=== PATIENT | male | born 1930 | race Caucasian/White ===

== ENCOUNTER → 2016-06-08 | Outpatient (REF) | payer OTHER ==
[~2016-06-08] MED LIST: BABY81CH OR; SILD50TA PO; TERA2CAP PO; ZOCO40TA PO; [UNRECOGNIZED DRUG - CODE] PO; [UNRECOGNIZED DRUG - OTHER]
== END ==
LOC: M SFHCCLAY 11:40
PROVIDERS: ATTEND Family Medicine
DX: F03.90 Unspecified dementia, unspecified severity, without behavioral disturbance, psychotic disturbance, mood disturbance, and anxiety (principal); I10 Essential (primary) hypertension; E78.2 Mixed hyperlipidemia; Z53.9 Procedure and treatment not carried out, unspecified reason

== ENCOUNTER → 2016-06-22 | Outpatient (REF) | payer OTHER ==
[2016-06-22 18:30] LABS: FOLATE 19.9 NG/ML; VITAMIN B12 LEVEL 413 PG/ML
[2016-06-22 18:43] LABS: ALBUMIN 3.8 GM/DL (3.2-5.2); ALBUMIN/GLOBULIN RATIO 1.58 (1.00-1.93); ALKALINE PHOSPHATASE 92 U/L (45-117); ALT/SGPT 24 U/L (12-78); ANION GAP 7 MEQ/L (8-16); AST/SGOT 21 U/L (15-37); BILIRUBIN,TOTAL 0.5 MG/DL (0.2-1.0); BLOOD UREA NITROGEN 33 MG/DL (7-18); CALCIUM LEVEL 8.2 MG/DL (8.8-10.2); CARBON DIOXIDE LEVEL 28 MEQ/L (21-32); CHLORIDE LEVEL 107 MEQ/L (98-107); CHOLESTEROL LEVEL 127 MG/DL (<200); CREATININE FOR GFR 1.11 MG/DL (0.70-1.30); GLOMERULAR FILTRATION RATE > 60.0 (>35); GLUCOSE, FASTING 102 MG/DL (83-110); POTASSIUM SERUM 4.1 MEQ/L (3.5-5.1); SODIUM LEVEL 142 MEQ/L (136-145); TOTAL PROTEIN 6.2 GM/DL (6.4-8.2); TRIGLYCERIDES LEVEL 70 MG/DL (<150)
== END ==
LOC: M SFHCCLAY 11:17
PROVIDERS: ATTEND Family Medicine
DX: I10 Essential (primary) hypertension (principal); E78.2 Mixed hyperlipidemia; Z12.5 Encounter for screening for malignant neoplasm of prostate; F03.90 Unspecified dementia, unspecified severity, without behavioral disturbance, psychotic disturbance, mood disturbance, and anxiety
CPT/HCPCS: 80053; 80061; 82607; 82746; 84443; G0103

== ENCOUNTER 2017-01-11 03:49 | Inpatient (IN) | payer OTHER ==
[2017-01-11 05:20] LABS: BASO % 0.1 % (0.0-1.0); HEMATOCRIT 33.4 % (42.0-52.0); HEMOGLOBIN 11.2 g/dl (14.0-18.0); IMMATURE GRANULOCYTE % 0.4 % (0-0); LYMPH # 0.7 10^3/uL (1.5-4.5); LYMPH % 6.9 % (24.0-44.0); MEAN CORPUSCULAR HEMOGLOBIN 31.5 pg (27.0-33.0); MEAN CORPUSCULAR HGB CONC 33.5 g/dl (32.0-36.5); MEAN CORPUSCULAR VOLUME 94.1 fl (80.0-96.0); MONO # 1.3 10^3/uL (0.0-0.8); MONO % 13.2 % (0.0-5.0); NEUTROPHILS # 7.5 10^3/uL (1.8-7.7); NEUTROPHILS % 79.4 % (36.0-66.0); PLATELET COUNT, AUTOMATED 109 10^3/uL (150-450); RED BLOOD COUNT 3.55 10^6/uL (4.30-6.10); WHITE BLOOD COUNT 9.5 10^3/uL (4.0-10.0)
[2017-01-11 05:38] LABS: ANION GAP 7 MEQ/L (8-16); BLOOD UREA NITROGEN 34 MG/DL (7-18); CALCIUM LEVEL 7.9 MG/DL (8.8-10.2); CARBON DIOXIDE LEVEL 27 MEQ/L (21-32); CHLORIDE LEVEL 108 MEQ/L (98-107); CREATININE FOR GFR 1.54 MG/DL (0.70-1.30); GLUCOSE, FASTING 128 MG/DL (83-110); SODIUM LEVEL 142 MEQ/L (136-145)
[2017-01-11] MEDS: AZITHROMYCIN INJ 500 MG, VIAL MATE ADAPTER 1 EACH in D5W 250 ML IV (07:45)
[2017-01-11] MEDS: CEFTRIAXONE SOD 2 GM in APPROPRIATE DILUENT 1 EA IV (08:06)
[2017-01-11 08:44] LABS: THYROID STIMULATING HORMONE 0.766 uIU/ML (0.358-3.740)
[2017-01-11 09:33] LABS: VITAMIN B12 LEVEL 425 PG/ML (247-911)
[2017-01-11] MEDS: MEMANTINE 5MG TABLET (NAMENDA) PO ×2 (12:25→20:39)
[2017-01-11] MEDS: ENOXAPARIN 40 MG/0.4 ML SYRINGE (J1650) SC (12:25)
[2017-01-11] MEDS: TAMSULOSIN 0.4 MG CAP PO (12:25)
[2017-01-11] MEDS: amLODIPine 5 MG TAB PO (12:33)
[2017-01-11] MEDS: risperiDONE 1 MG TAB PO (17:37)
[2017-01-11] MEDS: DONEPEZIL 5 MG TAB PO (20:39)
[2017-01-12 06:12] LABS: HEMATOCRIT 30.7 % (42.0-52.0); HEMOGLOBIN 10.3 g/dl (14.0-18.0); MEAN CORPUSCULAR HEMOGLOBIN 31.7 pg (27.0-33.0); MEAN CORPUSCULAR HGB CONC 33.6 g/dl (32.0-36.5); MEAN CORPUSCULAR VOLUME 94.5 fl (80.0-96.0); PLATELET COUNT, AUTOMATED 101 10^3/uL (150-450); RED BLOOD COUNT 3.25 10^6/uL (4.30-6.10); RED CELL DISTRIBUTION WIDTH 13.2 % (11.5-14.5); WHITE BLOOD COUNT 9.4 10^3/uL (4.0-10.0)
[2017-01-12 06:28] LABS: ALBUMIN 2.8 GM/DL (3.2-5.2); ALKALINE PHOSPHATASE 68 U/L (45-117); ALT/SGPT 19 U/L (12-78); ANION GAP 7 MEQ/L (8-16); AST/SGOT 23 U/L (7-37); BILIRUBIN,TOTAL 0.5 MG/DL (0.2-1.0); BLOOD UREA NITROGEN 33 MG/DL (7-18); CARBON DIOXIDE LEVEL 28 MEQ/L (21-32); CHLORIDE LEVEL 107 MEQ/L (98-107); CREATININE FOR GFR 1.04 MG/DL (0.70-1.30); GLOMERULAR FILTRATION RATE > 60.0 (>35); GLUCOSE, FASTING 88 MG/DL (83-110); SODIUM LEVEL 142 MEQ/L (136-145); TOTAL PROTEIN 5.6 GM/DL (6.4-8.2)
[2017-01-12] MEDS: CEFTRIAXONE SOD 2 GM in APPROPRIATE DILUENT 1 EA IV ×2 (09:00→10:45)
[2017-01-12] MEDS: MEMANTINE 5MG TABLET (NAMENDA) PO ×2 (09:21→20:04)
[2017-01-12] MEDS: risperiDONE 1 MG TAB PO (09:21)
[2017-01-12] MEDS: amLODIPine 5 MG TAB PO (09:21)
[2017-01-12] MEDS: AZITHROMYCIN INJ 500 MG, VIAL MATE ADAPTER 1 EACH in D5W 250 ML IV (09:22)
[2017-01-12] MEDS: ENOXAPARIN 40 MG/0.4 ML SYRINGE (J1650) SC (09:22)
[2017-01-12] MEDS: DONEPEZIL 5 MG TAB PO (20:04)
[2017-01-13 05:56] LABS: HEMATOCRIT 31.6 % (42.0-52.0); HEMOGLOBIN 10.4 g/dl (14.0-18.0); MEAN CORPUSCULAR HEMOGLOBIN 30.7 pg (27.0-33.0); MEAN CORPUSCULAR HGB CONC 32.9 g/dl (32.0-36.5); MEAN CORPUSCULAR VOLUME 93.2 fl (80.0-96.0); PLATELET COUNT, AUTOMATED 122 10^3/uL (150-450); RED BLOOD COUNT 3.39 10^6/uL (4.30-6.10); WHITE BLOOD COUNT 7.1 10^3/uL (4.0-10.0)
[2017-01-13] MEDS: MEMANTINE 5MG TABLET (NAMENDA) PO ×2 (09:15→21:21)
[2017-01-13] MEDS: amLODIPine 5 MG TAB PO (09:15)
[2017-01-13] MEDS: risperiDONE 1 MG TAB PO (09:15)
[2017-01-13] MEDS: ENOXAPARIN 40 MG/0.4 ML SYRINGE (J1650) SC (09:16)
[2017-01-13] MEDS: AZITHROMYCIN INJ 500 MG, VIAL MATE ADAPTER 1 EACH in D5W 250 ML IV (09:17)
[2017-01-13] MEDS: BENAZEPRIL 20 MG TAB PO (13:47)
[2017-01-13] MEDS: CEFDINIR 300 MG CAP (OMNICEF) PO (21:21)
[2017-01-13] MEDS: DONEPEZIL 5 MG TAB PO (21:21)
[2017-01-14 06:52] LABS: HEMOGLOBIN 11.4 g/dl (14.0-18.0); MEAN CORPUSCULAR HEMOGLOBIN 30.6 pg (27.0-33.0); MEAN CORPUSCULAR HGB CONC 32.6 g/dl (32.0-36.5); MEAN CORPUSCULAR VOLUME 94.1 fl (80.0-96.0); PLATELET COUNT, AUTOMATED 160 10^3/uL (150-450); RED BLOOD COUNT 3.72 10^6/uL (4.30-6.10); RED CELL DISTRIBUTION WIDTH 13.2 % (11.5-14.5); WHITE BLOOD COUNT 5.1 10^3/uL (4.0-10.0)
[2017-01-14] MEDS: AZITHROMYCIN 250 MG TAB PO (09:40)
[2017-01-14] MEDS: MEMANTINE 5MG TABLET (NAMENDA) PO ×2 (09:40→20:58)
[2017-01-14] MEDS: risperiDONE 1 MG TAB PO (09:41)
[2017-01-14] MEDS: CEFDINIR 300 MG CAP (OMNICEF) PO ×2 (09:41→20:58)
[2017-01-14] MEDS: amLODIPine 5 MG TAB PO (09:41)
[2017-01-14] MEDS: ENOXAPARIN 40 MG/0.4 ML SYRINGE (J1650) SC (09:42)
[2017-01-14] MEDS: DONEPEZIL 5 MG TAB PO (20:58)
[2017-01-15] MEDS: amLODIPine 5 MG TAB PO (09:03)
[2017-01-15] MEDS: CEFDINIR 300 MG CAP (OMNICEF) PO ×2 (09:03→20:15)
[2017-01-15] MEDS: risperiDONE 1 MG TAB PO (09:03)
[2017-01-15] MEDS: AZITHROMYCIN 250 MG TAB PO (09:03)
[2017-01-15] MEDS: MEMANTINE 5MG TABLET (NAMENDA) PO ×2 (09:03→20:15)
[2017-01-15] MEDS: ENOXAPARIN 40 MG/0.4 ML SYRINGE (J1650) SC (09:03)
[2017-01-15] MEDS: DONEPEZIL 5 MG TAB PO (20:15)
[2017-01-16] MEDS: CEFDINIR 300 MG CAP (OMNICEF) PO ×2 (10:15→20:31)
[2017-01-16] MEDS: AZITHROMYCIN 250 MG TAB PO (10:17)
[2017-01-16] MEDS: MEMANTINE 5MG TABLET (NAMENDA) PO ×2 (10:17→20:31)
[2017-01-16] MEDS: amLODIPine 5 MG TAB PO (10:18)
[2017-01-16] MEDS: risperiDONE 1 MG TAB PO (10:18)
[2017-01-16] MEDS: ENOXAPARIN 40 MG/0.4 ML SYRINGE (J1650) SC (10:19)
[2017-01-16] MEDS: DONEPEZIL 5 MG TAB PO (20:31)
[2017-01-17 07:57] LABS: HEMATOCRIT 35.8 % (42.0-52.0); HEMOGLOBIN 11.9 g/dl (14.0-18.0); MEAN CORPUSCULAR HEMOGLOBIN 31.3 pg (27.0-33.0); MEAN CORPUSCULAR HGB CONC 33.2 g/dl (32.0-36.5); MEAN CORPUSCULAR VOLUME 94.2 fl (80.0-96.0); PLATELET COUNT, AUTOMATED 223 10^3/uL (150-450); RED CELL DISTRIBUTION WIDTH 12.7 % (11.5-14.5); WHITE BLOOD COUNT 6.5 10^3/uL (4.0-10.0)
[2017-01-17] MEDS: MEMANTINE 5MG TABLET (NAMENDA) PO ×2 (09:37→20:43)
[2017-01-17] MEDS: CEFDINIR 300 MG CAP (OMNICEF) PO ×2 (09:37→20:42)
[2017-01-17] MEDS: risperiDONE 1 MG TAB PO (09:37)
[2017-01-17] MEDS: amLODIPine 5 MG TAB PO (09:37)
[2017-01-17] MEDS: ENOXAPARIN 40 MG/0.4 ML SYRINGE (J1650) SC (09:38)
[2017-01-17] MEDS: DONEPEZIL 5 MG TAB PO (20:42)
[2017-01-18] MEDS: amLODIPine 5 MG TAB PO (08:28)
[2017-01-18] MEDS: MEMANTINE 5MG TABLET (NAMENDA) PO ×2 (08:28→20:09)
[2017-01-18] MEDS: risperiDONE 1 MG TAB PO (08:28)
[2017-01-18] MEDS: CEFDINIR 300 MG CAP (OMNICEF) PO ×2 (08:29→20:09)
[2017-01-18] MEDS: ENOXAPARIN 40 MG/0.4 ML SYRINGE (J1650) SC (08:29)
[2017-01-18] MEDS: DONEPEZIL 5 MG TAB PO (20:09)
[2017-01-19] MEDS: MEMANTINE 5MG TABLET (NAMENDA) PO ×2 (09:09→20:48)
[2017-01-19] MEDS: CEFDINIR 300 MG CAP (OMNICEF) PO ×2 (09:09→20:48)
[2017-01-19] MEDS: risperiDONE 1 MG TAB PO (09:09)
[2017-01-19] MEDS: amLODIPine 5 MG TAB PO (09:09)
[2017-01-19] MEDS: ENOXAPARIN 40 MG/0.4 ML SYRINGE (J1650) SC (09:10)
[2017-01-19] MEDS: DONEPEZIL 5 MG TAB PO (20:48)
[2017-01-20 07:02] LABS: HEMATOCRIT 32.6 % (42.0-52.0); HEMOGLOBIN 10.9 g/dl (14.0-18.0); MEAN CORPUSCULAR HEMOGLOBIN 31.4 pg (27.0-33.0); MEAN CORPUSCULAR HGB CONC 33.4 g/dl (32.0-36.5); MEAN CORPUSCULAR VOLUME 93.9 fl (80.0-96.0); PLATELET COUNT, AUTOMATED 212 10^3/uL (150-450); RED BLOOD COUNT 3.47 10^6/uL (4.30-6.10); RED CELL DISTRIBUTION WIDTH 12.9 % (11.5-14.5); WHITE BLOOD COUNT 4.6 10^3/uL (4.0-10.0)
[2017-01-20] MEDS: MEMANTINE 5MG TABLET (NAMENDA) PO ×2 (08:23→21:00)
[2017-01-20] MEDS: risperiDONE 1 MG TAB PO (08:23)
[2017-01-20] MEDS: amLODIPine 5 MG TAB PO (08:23)
[2017-01-20] MEDS: CEFDINIR 300 MG CAP (OMNICEF) PO ×2 (08:23→21:00)
[2017-01-20] MEDS: ENOXAPARIN 40 MG/0.4 ML SYRINGE (J1650) SC (16:10)
[2017-01-20] MEDS: DONEPEZIL 5 MG TAB PO (21:00)
[2017-01-21] MEDS: MEMANTINE 5MG TABLET (NAMENDA) PO ×2 (09:06→21:01)
[2017-01-21] MEDS: amLODIPine 5 MG TAB PO (09:06)
[2017-01-21] MEDS: CEFDINIR 300 MG CAP (OMNICEF) PO (09:06)
[2017-01-21] MEDS: ENOXAPARIN 40 MG/0.4 ML SYRINGE (J1650) SC (09:07)
[2017-01-21] MEDS: risperiDONE 1 MG TAB PO (09:07)
[2017-01-21] MEDS: DONEPEZIL 5 MG TAB PO (21:01)
[2017-01-22] MEDS: ENOXAPARIN 40 MG/0.4 ML SYRINGE (J1650) SC (08:45)
[2017-01-22] MEDS: risperiDONE 1 MG TAB PO (08:45)
[2017-01-22] MEDS: MEMANTINE 5MG TABLET (NAMENDA) PO ×2 (08:45→20:12)
[2017-01-22] MEDS: amLODIPine 5 MG TAB PO (08:45)
[2017-01-22] MEDS: DONEPEZIL 5 MG TAB PO (20:12)
[2017-01-23] MEDS: ACETAMINOPHEN TAB 650MG DOSE (2X325MG) PO (00:59)
[2017-01-23 07:07] LABS: HEMATOCRIT 32.9 % (42.0-52.0); HEMOGLOBIN 10.9 g/dl (14.0-18.0); MEAN CORPUSCULAR HEMOGLOBIN 31.1 pg (27.0-33.0); MEAN CORPUSCULAR HGB CONC 33.1 g/dl (32.0-36.5); MEAN CORPUSCULAR VOLUME 93.7 fl (80.0-96.0); PLATELET COUNT, AUTOMATED 192 10^3/uL (150-450); RED BLOOD COUNT 3.51 10^6/uL (4.30-6.10); WHITE BLOOD COUNT 5.3 10^3/uL (4.0-10.0)
[2017-01-23] MEDS: amLODIPine 5 MG TAB PO (09:30)
[2017-01-23] MEDS: risperiDONE 1 MG TAB PO (09:30)
[2017-01-23] MEDS: MEMANTINE 5MG TABLET (NAMENDA) PO ×2 (09:30→20:28)
[2017-01-23] MEDS: ENOXAPARIN 40 MG/0.4 ML SYRINGE (J1650) SC (09:30)
[2017-01-23] MEDS: DONEPEZIL 5 MG TAB PO (20:28)
[2017-01-24] MEDS: MEMANTINE 5MG TABLET (NAMENDA) PO ×2 (09:15→20:44)
[2017-01-24] MEDS: amLODIPine 5 MG TAB PO (09:17)
[2017-01-24] MEDS: risperiDONE 1 MG TAB PO (09:17)
[2017-01-24] MEDS: ENOXAPARIN 40 MG/0.4 ML SYRINGE (J1650) SC (09:18)
[2017-01-24] MEDS: DONEPEZIL 5 MG TAB PO (20:44)
[2017-01-25] MEDS: MEMANTINE 5MG TABLET (NAMENDA) PO ×2 (11:02→20:47)
[2017-01-25] MEDS: risperiDONE 1 MG TAB PO (11:02)
[2017-01-25] MEDS: ENOXAPARIN 40 MG/0.4 ML SYRINGE (J1650) SC (11:02)
[2017-01-25] MEDS: amLODIPine 5 MG TAB PO (11:03)
[2017-01-25] MEDS: DONEPEZIL 5 MG TAB PO (20:46)
[2017-01-25] MEDS: ACETAMINOPHEN TAB 650MG DOSE (2X325MG) PO (23:22)
[2017-01-26] MEDS: risperiDONE 1 MG TAB PO (09:43)
[2017-01-26] MEDS: MEMANTINE 5MG TABLET (NAMENDA) PO ×2 (09:43→22:28)
[2017-01-26] MEDS: amLODIPine 5 MG TAB PO (09:44)
[2017-01-26] MEDS: ENOXAPARIN 40 MG/0.4 ML SYRINGE (J1650) SC (09:45)
[2017-01-26] MEDS: DONEPEZIL 5 MG TAB PO (22:28)
[2017-01-27] MEDS: risperiDONE 1 MG TAB PO (08:59)
[2017-01-27] MEDS: ENOXAPARIN 40 MG/0.4 ML SYRINGE (J1650) SC (08:59)
[2017-01-27] MEDS: MEMANTINE 5MG TABLET (NAMENDA) PO ×2 (08:59→20:42)
[2017-01-27] MEDS: amLODIPine 5 MG TAB PO (08:59)
[2017-01-27] MEDS: DONEPEZIL 5 MG TAB PO (20:42)
[2017-01-27] MEDS: ACETAMINOPHEN TAB 650MG DOSE (2X325MG) PO (23:09)
[2017-01-28] MEDS: ACETAMINOPHEN TAB 650MG DOSE (2X325MG) PO (03:57)
[2017-01-28] MEDS: amLODIPine 5 MG TAB PO (09:07)
[2017-01-28] MEDS: MEMANTINE 5MG TABLET (NAMENDA) PO ×2 (09:07→21:03)
[2017-01-28] MEDS: risperiDONE 1 MG TAB PO (09:07)
[2017-01-28] MEDS: ENOXAPARIN 40 MG/0.4 ML SYRINGE (J1650) SC (09:07)
[2017-01-28] MEDS: DONEPEZIL 5 MG TAB PO (21:03)
[2017-01-29] MEDS: amLODIPine 5 MG TAB PO (08:36)
[2017-01-29] MEDS: MEMANTINE 5MG TABLET (NAMENDA) PO ×2 (08:36→20:36)
[2017-01-29] MEDS: risperiDONE 1 MG TAB PO (08:36)
[2017-01-29] MEDS: ENOXAPARIN 40 MG/0.4 ML SYRINGE (J1650) SC (08:37)
[2017-01-29] MEDS: DONEPEZIL 5 MG TAB PO (20:35)
[2017-01-29] MEDS: ACETAMINOPHEN TAB 650MG DOSE (2X325MG) PO (20:38)
[2017-01-30] MEDS: MEMANTINE 5MG TABLET (NAMENDA) PO ×2 (09:22→20:25)
[2017-01-30] MEDS: risperiDONE 1 MG TAB PO (09:22)
[2017-01-30] MEDS: amLODIPine 5 MG TAB PO (09:23)
[2017-01-30] MEDS: ENOXAPARIN 40 MG/0.4 ML SYRINGE (J1650) SC (09:23)
[2017-01-30] MEDS: DONEPEZIL 5 MG TAB PO (20:25)
[2017-01-31] MEDS: risperiDONE 1 MG TAB PO (08:49)
[2017-01-31] MEDS: amLODIPine 5 MG TAB PO (08:50)
[2017-01-31] MEDS: MEMANTINE 5MG TABLET (NAMENDA) PO ×2 (08:50→20:19)
[2017-01-31] MEDS: ENOXAPARIN 40 MG/0.4 ML SYRINGE (J1650) SC (08:50)
[2017-01-31] MEDS: DONEPEZIL 5 MG TAB PO (20:18)
[2017-02-01] MEDS: risperiDONE 1 MG TAB PO (08:23)
[2017-02-01] MEDS: MEMANTINE 5MG TABLET (NAMENDA) PO ×2 (08:23→20:07)
[2017-02-01] MEDS: ENOXAPARIN 40 MG/0.4 ML SYRINGE (J1650) SC (08:23)
[2017-02-01] MEDS: amLODIPine 5 MG TAB PO (08:23)
[2017-02-01] MEDS: DONEPEZIL 5 MG TAB PO (20:07)
[2017-02-02] MEDS: ACETAMINOPHEN TAB 650MG DOSE (2X325MG) PO (07:09)
[2017-02-02] MEDS: MEMANTINE 5MG TABLET (NAMENDA) PO ×2 (08:35→22:14)
[2017-02-02] MEDS: amLODIPine 5 MG TAB PO (08:35)
[2017-02-02] MEDS: risperiDONE 1 MG TAB PO (08:35)
[2017-02-02] MEDS: ENOXAPARIN 40 MG/0.4 ML SYRINGE (J1650) SC (08:36)
[2017-02-02] MEDS: DONEPEZIL 5 MG TAB PO (22:14)
[2017-02-03] MEDS: ENOXAPARIN 40 MG/0.4 ML SYRINGE (J1650) SC (08:43)
[2017-02-03] MEDS: MEMANTINE 5MG TABLET (NAMENDA) PO ×2 (08:43→20:06)
[2017-02-03] MEDS: risperiDONE 1 MG TAB PO (08:43)
[2017-02-03] MEDS: amLODIPine 5 MG TAB PO (08:44)
[2017-02-03] MEDS: ACETAMINOPHEN TAB 650MG DOSE (2X325MG) PO ×2 (14:38→20:07)
[2017-02-03] MEDS: DONEPEZIL 5 MG TAB PO (20:06)
[2017-02-04] MEDS: MEMANTINE 5MG TABLET (NAMENDA) PO ×2 (07:56→19:57)
[2017-02-04] MEDS: amLODIPine 5 MG TAB PO (07:56)
[2017-02-04] MEDS: risperiDONE 1 MG TAB PO (07:56)
[2017-02-04] MEDS: ENOXAPARIN 40 MG/0.4 ML SYRINGE (J1650) SC (07:57)
[2017-02-04] MEDS: ACETAMINOPHEN TAB 650MG DOSE (2X325MG) PO (19:57)
[2017-02-04] MEDS: DONEPEZIL 5 MG TAB PO (19:57)
[2017-02-05] MEDS: MEMANTINE 5MG TABLET (NAMENDA) PO ×2 (11:54→20:19)
[2017-02-05] MEDS: amLODIPine 5 MG TAB PO (11:55)
[2017-02-05] MEDS: risperiDONE 1 MG TAB PO (11:55)
[2017-02-05] MEDS: ENOXAPARIN 40 MG/0.4 ML SYRINGE (J1650) SC (11:55)
[2017-02-05] MEDS: DONEPEZIL 5 MG TAB PO (20:19)
[2017-02-06] MEDS: risperiDONE 1 MG TAB PO (10:23)
[2017-02-06] MEDS: MEMANTINE 5MG TABLET (NAMENDA) PO ×2 (10:23→20:01)
[2017-02-06] MEDS: amLODIPine 5 MG TAB PO (10:23)
[2017-02-06] MEDS: ENOXAPARIN 40 MG/0.4 ML SYRINGE (J1650) SC (10:24)
[2017-02-06] MEDS: BENAZEPRIL 20 MG TAB PO (15:25)
[2017-02-06] MEDS: DONEPEZIL 5 MG TAB PO (20:01)
[2017-02-06] MEDS: ACETAMINOPHEN TAB 650MG DOSE (2X325MG) PO (20:02)
[2017-02-07] MEDS: MEMANTINE 5MG TABLET (NAMENDA) PO ×2 (08:09→21:00)
[2017-02-07] MEDS: ENOXAPARIN 40 MG/0.4 ML SYRINGE (J1650) SC (08:10)
[2017-02-07] MEDS: risperiDONE 1 MG TAB PO (08:10)
[2017-02-07] MEDS: BENAZEPRIL 20 MG TAB PO (08:10)
[2017-02-07] MEDS: amLODIPine 5 MG TAB PO (08:10)
[2017-02-07] MEDS: ACETAMINOPHEN TAB 650MG DOSE (2X325MG) PO ×2 (15:01→21:03)
[2017-02-07] MEDS: DONEPEZIL 5 MG TAB PO (21:00)
[2017-02-08] MEDS: ACETAMINOPHEN TAB 650MG DOSE (2X325MG) PO ×2 (04:45→20:01)
[2017-02-08] MEDS: MEMANTINE 5MG TABLET (NAMENDA) PO ×2 (08:11→20:00)
[2017-02-08] MEDS: amLODIPine 5 MG TAB PO (08:12)
[2017-02-08] MEDS: risperiDONE 1 MG TAB PO (08:12)
[2017-02-08] MEDS: BENAZEPRIL 20 MG TAB PO (08:12)
[2017-02-08] MEDS: ENOXAPARIN 40 MG/0.4 ML SYRINGE (J1650) SC (11:09)
[2017-02-08] MEDS: DONEPEZIL 5 MG TAB PO (20:00)
[2017-02-09] MEDS: ACETAMINOPHEN TAB 650MG DOSE (2X325MG) PO ×2 (02:08→21:19)
[2017-02-09] MEDS: MEMANTINE 5MG TABLET (NAMENDA) PO ×2 (09:46→21:18)
[2017-02-09] MEDS: risperiDONE 1 MG TAB PO (09:46)
[2017-02-09] MEDS: ENOXAPARIN 40 MG/0.4 ML SYRINGE (J1650) SC (09:47)
[2017-02-09] MEDS: amLODIPine 5 MG TAB PO (09:51)
[2017-02-09] MEDS: BENAZEPRIL 20 MG TAB PO (09:52)
[2017-02-09] MEDS: DONEPEZIL 5 MG TAB PO (21:19)
[2017-02-10] MEDS: amLODIPine 5 MG TAB PO (09:19)
[2017-02-10] MEDS: risperiDONE 1 MG TAB PO (09:19)
[2017-02-10] MEDS: MEMANTINE 5MG TABLET (NAMENDA) PO ×2 (09:19→20:12)
[2017-02-10] MEDS: BENAZEPRIL 20 MG TAB PO (09:19)
[2017-02-10] MEDS: ENOXAPARIN 40 MG/0.4 ML SYRINGE (J1650) SC (09:20)
[2017-02-10] MEDS: DONEPEZIL 5 MG TAB PO (20:12)
[2017-02-11] MEDS: ENOXAPARIN 40 MG/0.4 ML SYRINGE (J1650) SC (09:42)
[2017-02-11] MEDS: risperiDONE 1 MG TAB PO (09:42)
[2017-02-11] MEDS: MEMANTINE 5MG TABLET (NAMENDA) PO ×2 (09:45→19:52)
[2017-02-11] MEDS: BENAZEPRIL 20 MG TAB PO (09:45)
[2017-02-11] MEDS: amLODIPine 5 MG TAB PO (09:46)
[2017-02-11] MEDS: DONEPEZIL 5 MG TAB PO (19:52)
[2017-02-11] MEDS: ACETAMINOPHEN TAB 650MG DOSE (2X325MG) PO (19:52)
[2017-02-12] MEDS: BENAZEPRIL 20 MG TAB PO (10:14)
[2017-02-12] MEDS: risperiDONE 1 MG TAB PO (10:14)
[2017-02-12] MEDS: amLODIPine 5 MG TAB PO (10:15)
[2017-02-12] MEDS: ENOXAPARIN 40 MG/0.4 ML SYRINGE (J1650) SC (10:15)
[2017-02-12] MEDS: MEMANTINE 5MG TABLET (NAMENDA) PO ×2 (10:15→19:40)
[2017-02-12] MEDS: ACETAMINOPHEN TAB 650MG DOSE (2X325MG) PO (17:54)
[2017-02-12] MEDS: DONEPEZIL 5 MG TAB PO (19:39)
[2017-02-13] MEDS: MEMANTINE 5MG TABLET (NAMENDA) PO ×2 (09:36→20:07)
[2017-02-13] MEDS: risperiDONE 1 MG TAB PO (09:36)
[2017-02-13] MEDS: ENOXAPARIN 40 MG/0.4 ML SYRINGE (J1650) SC (09:36)
[2017-02-13] MEDS: amLODIPine 5 MG TAB PO (09:36)
[2017-02-13] MEDS: BENAZEPRIL 20 MG TAB PO (09:36)
[2017-02-13] MEDS: ACETAMINOPHEN TAB 650MG DOSE (2X325MG) PO (20:07)
[2017-02-13] MEDS: DONEPEZIL 5 MG TAB PO (20:07)
[2017-02-14] MEDS: risperiDONE 1 MG TAB PO (09:00)
[2017-02-14] MEDS: ENOXAPARIN 40 MG/0.4 ML SYRINGE (J1650) SC (09:01)
[2017-02-14] MEDS: MEMANTINE 5MG TABLET (NAMENDA) PO ×2 (09:01→21:02)
[2017-02-14] MEDS: BENAZEPRIL 20 MG TAB PO (09:01)
[2017-02-14] MEDS: amLODIPine 5 MG TAB PO (09:01)
[2017-02-14] MEDS: DONEPEZIL 5 MG TAB PO (21:03)
[2017-02-15] MEDS: ACETAMINOPHEN TAB 650MG DOSE (2X325MG) PO ×3 (05:43→20:20)
[2017-02-15] MEDS: risperiDONE 1 MG TAB PO (09:00)
[2017-02-15] MEDS: MEMANTINE 5MG TABLET (NAMENDA) PO ×2 (09:00→20:14)
[2017-02-15] MEDS: amLODIPine 5 MG TAB PO (09:00)
[2017-02-15] MEDS: BENAZEPRIL 20 MG TAB PO (09:01)
[2017-02-15] MEDS: DONEPEZIL 5 MG TAB PO (20:14)
[2017-02-16] MEDS: MEMANTINE 5MG TABLET (NAMENDA) PO ×2 (10:42→20:04)
[2017-02-16] MEDS: BENAZEPRIL 20 MG TAB PO (10:42)
[2017-02-16] MEDS: amLODIPine 5 MG TAB PO (10:42)
[2017-02-16] MEDS: risperiDONE 1 MG TAB PO (10:42)
[2017-02-16] MEDS: ACETAMINOPHEN TAB 650MG DOSE (2X325MG) PO ×2 (10:43→20:05)
[2017-02-16] MEDS: DONEPEZIL 5 MG TAB PO (20:04)
[2017-02-17] MEDS: risperiDONE 1 MG TAB PO (08:17)
[2017-02-17] MEDS: amLODIPine 5 MG TAB PO (08:17)
[2017-02-17] MEDS: BENAZEPRIL 20 MG TAB PO (08:17)
[2017-02-17] MEDS: MEMANTINE 5MG TABLET (NAMENDA) PO ×2 (08:17→20:28)
[2017-02-17] MEDS: DONEPEZIL 5 MG TAB PO (20:28)
[2017-02-17] MEDS: ACETAMINOPHEN TAB 650MG DOSE (2X325MG) PO (20:29)
[2017-02-18] MEDS: amLODIPine 5 MG TAB PO (09:25)
[2017-02-18] MEDS: MEMANTINE 5MG TABLET (NAMENDA) PO ×2 (09:25→20:01)
[2017-02-18] MEDS: BENAZEPRIL 20 MG TAB PO (09:26)
[2017-02-18] MEDS: risperiDONE 1 MG TAB PO (09:26)
[2017-02-18] MEDS: DONEPEZIL 5 MG TAB PO (20:01)
[2017-02-18] MEDS: ACETAMINOPHEN TAB 650MG DOSE (2X325MG) PO (22:27)
[2017-02-19] MEDS: risperiDONE 1 MG TAB PO (10:00)
[2017-02-19] MEDS: MEMANTINE 5MG TABLET (NAMENDA) PO ×2 (10:00→20:09)
[2017-02-19] MEDS: amLODIPine 5 MG TAB PO (10:01)
[2017-02-19] MEDS: BENAZEPRIL 20 MG TAB PO (10:02)
[2017-02-19] MEDS: ACETAMINOPHEN TAB 650MG DOSE (2X325MG) PO (16:31)
[2017-02-19] MEDS: DONEPEZIL 5 MG TAB PO (20:09)
[2017-02-20] MEDS: BENAZEPRIL 20 MG TAB PO (08:09)
[2017-02-20] MEDS: MEMANTINE 5MG TABLET (NAMENDA) PO ×2 (08:09→20:30)
[2017-02-20] MEDS: risperiDONE 1 MG TAB PO (08:09)
[2017-02-20] MEDS: amLODIPine 5 MG TAB PO (08:10)
[2017-02-20] MEDS: DONEPEZIL 5 MG TAB PO (20:30)
[2017-02-20] MEDS: ACETAMINOPHEN TAB 650MG DOSE (2X325MG) PO (20:30)
[2017-02-21] MEDS: ACETAMINOPHEN TAB 650MG DOSE (2X325MG) PO ×2 (08:33→20:03)
[2017-02-21] MEDS: MEMANTINE 5MG TABLET (NAMENDA) PO ×2 (08:33→20:02)
[2017-02-21] MEDS: risperiDONE 1 MG TAB PO (08:34)
[2017-02-21] MEDS: BENAZEPRIL 20 MG TAB PO (08:34)
[2017-02-21] MEDS: amLODIPine 5 MG TAB PO (08:34)
[2017-02-21] MEDS: DONEPEZIL 5 MG TAB PO (20:02)
[2017-02-22] MEDS: ACETAMINOPHEN TAB 650MG DOSE (2X325MG) PO ×4 (00:49→23:27)
[2017-02-22] MEDS: risperiDONE 1 MG TAB PO (07:44)
[2017-02-22] MEDS: BENAZEPRIL 20 MG TAB PO (07:45)
[2017-02-22] MEDS: amLODIPine 5 MG TAB PO (07:45)
[2017-02-22] MEDS: MEMANTINE 5MG TABLET (NAMENDA) PO ×2 (07:45→20:35)
[2017-02-22] MEDS: DONEPEZIL 5 MG TAB PO (20:35)
[2017-02-23] MEDS: BENAZEPRIL 20 MG TAB PO (10:18)
[2017-02-23] MEDS: MEMANTINE 5MG TABLET (NAMENDA) PO ×2 (10:18→21:53)
[2017-02-23] MEDS: risperiDONE 1 MG TAB PO (10:18)
[2017-02-23] MEDS: amLODIPine 5 MG TAB PO (10:18)
[2017-02-23] MEDS: DONEPEZIL 5 MG TAB PO (21:53)
[2017-02-23] MEDS: ACETAMINOPHEN TAB 650MG DOSE (2X325MG) PO (22:55)
[2017-02-24] MEDS: amLODIPine 5 MG TAB PO (08:59)
[2017-02-24] MEDS: BENAZEPRIL 20 MG TAB PO (08:59)
[2017-02-24] MEDS: MEMANTINE 5MG TABLET (NAMENDA) PO ×2 (08:59→20:19)
[2017-02-24] MEDS: risperiDONE 1 MG TAB PO (09:00)
[2017-02-24] MEDS: ACETAMINOPHEN TAB 650MG DOSE (2X325MG) PO (20:18)
[2017-02-24] MEDS: DONEPEZIL 5 MG TAB PO (20:19)
[2017-02-25] MEDS: risperiDONE 1 MG TAB PO (08:56)
[2017-02-25] MEDS: MEMANTINE 5MG TABLET (NAMENDA) PO ×2 (08:57→20:18)
[2017-02-25] MEDS: BENAZEPRIL 20 MG TAB PO (08:57)
[2017-02-25] MEDS: amLODIPine 5 MG TAB PO (09:00)
[2017-02-25] MEDS: DONEPEZIL 5 MG TAB PO (20:18)
[2017-02-25] MEDS: ACETAMINOPHEN TAB 650MG DOSE (2X325MG) PO (20:18)
[2017-02-26] MEDS: risperiDONE 1 MG TAB PO (08:13)
[2017-02-26] MEDS: MEMANTINE 5MG TABLET (NAMENDA) PO ×2 (08:13→20:07)
[2017-02-26] MEDS: amLODIPine 5 MG TAB PO (08:13)
[2017-02-26] MEDS: BENAZEPRIL 20 MG TAB PO (08:13)
[2017-02-26] MEDS: DONEPEZIL 5 MG TAB PO (20:07)
[2017-02-26] MEDS: ACETAMINOPHEN TAB 650MG DOSE (2X325MG) PO (20:07)
[2017-02-27] MEDS: risperiDONE 1 MG TAB PO (09:36)
[2017-02-27] MEDS: amLODIPine 5 MG TAB PO (09:37)
[2017-02-27] MEDS: MEMANTINE 5MG TABLET (NAMENDA) PO ×2 (09:37→20:18)
[2017-02-27] MEDS: BENAZEPRIL 20 MG TAB PO (09:37)
[2017-02-27] MEDS: DONEPEZIL 5 MG TAB PO (20:18)
[2017-02-27] MEDS: ACETAMINOPHEN TAB 650MG DOSE (2X325MG) PO (20:18)
[2017-02-28] MEDS: BENAZEPRIL 20 MG TAB PO (09:45)
[2017-02-28] MEDS: risperiDONE 1 MG TAB PO (09:46)
[2017-02-28] MEDS: MEMANTINE 5MG TABLET (NAMENDA) PO ×2 (09:46→22:17)
[2017-02-28] MEDS: amLODIPine 5 MG TAB PO (09:46)
[2017-02-28] MEDS: ACETAMINOPHEN TAB 650MG DOSE (2X325MG) PO (22:17)
[2017-02-28] MEDS: DONEPEZIL 5 MG TAB PO (22:17)
[2017-03-01] MEDS: MEMANTINE 5MG TABLET (NAMENDA) PO ×2 (08:09→20:07)
[2017-03-01] MEDS: amLODIPine 5 MG TAB PO (08:09)
[2017-03-01] MEDS: risperiDONE 1 MG TAB PO (08:09)
[2017-03-01] MEDS: BENAZEPRIL 20 MG TAB PO (08:09)
[2017-03-01] MEDS: ACETAMINOPHEN TAB 650MG DOSE (2X325MG) PO ×2 (09:48→20:08)
[2017-03-01] MEDS: DONEPEZIL 5 MG TAB PO (20:07)
[2017-03-01] MEDS: GABAPENTIN 100 MG CAP PO (20:08)
[2017-03-02] MEDS: GABAPENTIN 100 MG CAP PO ×2 (08:54→20:06)
[2017-03-02] MEDS: BENAZEPRIL 20 MG TAB PO (08:54)
[2017-03-02] MEDS: MEMANTINE 5MG TABLET (NAMENDA) PO ×2 (08:54→20:06)
[2017-03-02] MEDS: risperiDONE 1 MG TAB PO (08:54)
[2017-03-02] MEDS: amLODIPine 5 MG TAB PO (08:54)
[2017-03-02] MEDS: NAPROXEN 250 MG TAB PO (20:06)
[2017-03-02] MEDS: DONEPEZIL 5 MG TAB PO (20:06)
[2017-03-03] MEDS: amLODIPine 5 MG TAB PO (07:53)
[2017-03-03] MEDS: MEMANTINE 5MG TABLET (NAMENDA) PO ×2 (07:53→20:22)
[2017-03-03] MEDS: risperiDONE 1 MG TAB PO (07:53)
[2017-03-03] MEDS: BENAZEPRIL 20 MG TAB PO (07:53)
[2017-03-03] MEDS: GABAPENTIN 100 MG CAP PO ×2 (07:53→20:22)
[2017-03-03] MEDS: DONEPEZIL 5 MG TAB PO (20:22)
[2017-03-03] MEDS: ACETAMINOPHEN TAB 650MG DOSE (2X325MG) PO (20:23)
[2017-03-04] MEDS: risperiDONE 1 MG TAB PO (08:48)
[2017-03-04] MEDS: amLODIPine 5 MG TAB PO (08:48)
[2017-03-04] MEDS: BENAZEPRIL 20 MG TAB PO (08:48)
[2017-03-04] MEDS: MEMANTINE 5MG TABLET (NAMENDA) PO ×2 (08:48→21:41)
[2017-03-04] MEDS: GABAPENTIN 100 MG CAP PO ×2 (08:48→21:41)
[2017-03-04] MEDS: DONEPEZIL 5 MG TAB PO (21:41)
[2017-03-04] MEDS: ACETAMINOPHEN TAB 650MG DOSE (2X325MG) PO (23:48)
[2017-03-05] MEDS: MEMANTINE 5MG TABLET (NAMENDA) PO ×2 (08:55→20:41)
[2017-03-05] MEDS: risperiDONE 1 MG TAB PO (08:56)
[2017-03-05] MEDS: amLODIPine 5 MG TAB PO (08:56)
[2017-03-05] MEDS: BENAZEPRIL 20 MG TAB PO (08:56)
[2017-03-05] MEDS: GABAPENTIN 100 MG CAP PO ×2 (08:56→20:41)
[2017-03-05] MEDS: DONEPEZIL 5 MG TAB PO (20:41)
[2017-03-05] MEDS: ACETAMINOPHEN TAB 650MG DOSE (2X325MG) PO (20:43)
[2017-03-06] MEDS: ACETAMINOPHEN TAB 650MG DOSE (2X325MG) PO ×2 (01:50→23:50)
[2017-03-06] MEDS: amLODIPine 5 MG TAB PO (08:19)
[2017-03-06] MEDS: GABAPENTIN 100 MG CAP PO ×2 (08:19→20:51)
[2017-03-06] MEDS: BENAZEPRIL 20 MG TAB PO (08:19)
[2017-03-06] MEDS: MEMANTINE 5MG TABLET (NAMENDA) PO ×2 (08:19→20:51)
[2017-03-06] MEDS: risperiDONE 1 MG TAB PO (08:19)
[2017-03-06] MEDS: NAPROXEN 250 MG TAB PO (20:51)
[2017-03-06] MEDS: DONEPEZIL 5 MG TAB PO (20:51)
[2017-03-07] MEDS: ACETAMINOPHEN TAB 650MG DOSE (2X325MG) PO ×2 (05:59→18:07)
[2017-03-07] MEDS: GABAPENTIN 100 MG CAP PO ×2 (08:43→20:35)
[2017-03-07] MEDS: MEMANTINE 5MG TABLET (NAMENDA) PO ×2 (08:43→20:35)
[2017-03-07] MEDS: amLODIPine 5 MG TAB PO (08:43)
[2017-03-07] MEDS: BENAZEPRIL 20 MG TAB PO (08:43)
[2017-03-07] MEDS: risperiDONE 1 MG TAB PO (08:43)
[2017-03-07] MEDS: DONEPEZIL 5 MG TAB PO (20:35)
[2017-03-07] MEDS: NAPROXEN 250 MG TAB PO (20:36)
[2017-03-08] MEDS: ACETAMINOPHEN TAB 650MG DOSE (2X325MG) PO (04:12)
[2017-03-08] MEDS: NAPROXEN 250 MG TAB PO ×2 (09:45→20:25)
[2017-03-08] MEDS: risperiDONE 1 MG TAB PO (09:45)
[2017-03-08] MEDS: amLODIPine 5 MG TAB PO (09:46)
[2017-03-08] MEDS: MEMANTINE 5MG TABLET (NAMENDA) PO ×2 (09:46→20:25)
[2017-03-08] MEDS: BENAZEPRIL 20 MG TAB PO (09:46)
[2017-03-08] MEDS: GABAPENTIN 100 MG CAP PO ×2 (09:46→20:25)
[2017-03-08] MEDS: DONEPEZIL 5 MG TAB PO (20:25)
[2017-03-09] MEDS: risperiDONE 1 MG TAB PO (08:51)
[2017-03-09] MEDS: GABAPENTIN 100 MG CAP PO ×2 (08:51→20:23)
[2017-03-09] MEDS: BENAZEPRIL 20 MG TAB PO (08:51)
[2017-03-09] MEDS: MEMANTINE 5MG TABLET (NAMENDA) PO ×2 (08:51→20:22)
[2017-03-09] MEDS: amLODIPine 5 MG TAB PO (08:52)
[2017-03-09] MEDS: DONEPEZIL 5 MG TAB PO (20:23)
[2017-03-09] MEDS: ACETAMINOPHEN TAB 650MG DOSE (2X325MG) PO (20:23)
[2017-03-10] MEDS: BENAZEPRIL 20 MG TAB PO (08:31)
[2017-03-10] MEDS: MEMANTINE 5MG TABLET (NAMENDA) PO ×2 (08:31→20:54)
[2017-03-10] MEDS: GABAPENTIN 100 MG CAP PO ×2 (08:31→20:54)
[2017-03-10] MEDS: risperiDONE 1 MG TAB PO (08:31)
[2017-03-10] MEDS: NAPROXEN 250 MG TAB PO (08:31)
[2017-03-10] MEDS: amLODIPine 5 MG TAB PO (08:32)
[2017-03-10] MEDS: DONEPEZIL 5 MG TAB PO (20:54)
[2017-03-11] MEDS: MEMANTINE 5MG TABLET (NAMENDA) PO ×2 (10:59→21:45)
[2017-03-11] MEDS: amLODIPine 5 MG TAB PO (10:59)
[2017-03-11] MEDS: risperiDONE 1 MG TAB PO (11:00)
[2017-03-11] MEDS: GABAPENTIN 100 MG CAP PO ×2 (11:00→21:45)
[2017-03-11] MEDS: BENAZEPRIL 20 MG TAB PO (11:00)
[2017-03-11] MEDS: DONEPEZIL 5 MG TAB PO (21:44)
[2017-03-11] MEDS: ACETAMINOPHEN TAB 650MG DOSE (2X325MG) PO (21:46)
[2017-03-12] MEDS: risperiDONE 1 MG TAB PO (08:18)
[2017-03-12] MEDS: MEMANTINE 5MG TABLET (NAMENDA) PO ×2 (08:18→21:59)
[2017-03-12] MEDS: BENAZEPRIL 20 MG TAB PO (08:18)
[2017-03-12] MEDS: GABAPENTIN 100 MG CAP PO ×2 (08:18→21:59)
[2017-03-12] MEDS: amLODIPine 5 MG TAB PO (08:18)
[2017-03-12] MEDS: NAPROXEN 250 MG TAB PO (08:19)
[2017-03-12] MEDS: DONEPEZIL 5 MG TAB PO (21:59)
[2017-03-12] MEDS: ACETAMINOPHEN TAB 650MG DOSE (2X325MG) PO (22:01)
[2017-03-13] MEDS: BENAZEPRIL 20 MG TAB PO (08:51)
[2017-03-13] MEDS: amLODIPine 5 MG TAB PO (08:51)
[2017-03-13] MEDS: ACETAMINOPHEN TAB 650MG DOSE (2X325MG) PO ×2 (08:51→20:58)
[2017-03-13] MEDS: GABAPENTIN 100 MG CAP PO ×2 (08:51→20:56)
[2017-03-13] MEDS: risperiDONE 1 MG TAB PO (08:51)
[2017-03-13] MEDS: MEMANTINE 5MG TABLET (NAMENDA) PO ×2 (08:51→20:56)
[2017-03-13] MEDS: DONEPEZIL 5 MG TAB PO (20:56)
[2017-03-14] MEDS: risperiDONE 1 MG TAB PO (08:10)
[2017-03-14] MEDS: BENAZEPRIL 20 MG TAB PO (08:10)
[2017-03-14] MEDS: GABAPENTIN 100 MG CAP PO ×4 (08:11→21:04)
[2017-03-14] MEDS: ACETAMINOPHEN TAB 650MG DOSE (2X325MG) PO ×3 (08:11→21:04)
[2017-03-14] MEDS: MEMANTINE 5MG TABLET (NAMENDA) PO ×4 (08:11→21:04)
[2017-03-14] MEDS: amLODIPine 5 MG TAB PO (08:11)
[2017-03-14] MEDS: DONEPEZIL 5 MG TAB PO ×3 (19:57→21:04)
[2017-03-14] MEDS: NAPROXEN 250 MG TAB PO (23:23)
[2017-03-15] MEDS: amLODIPine 5 MG TAB PO (08:38)
[2017-03-15] MEDS: GABAPENTIN 100 MG CAP PO ×2 (08:38→21:25)
[2017-03-15] MEDS: BENAZEPRIL 20 MG TAB PO (08:38)
[2017-03-15] MEDS: NAPROXEN 250 MG TAB PO ×2 (08:39→21:25)
[2017-03-15] MEDS: risperiDONE 1 MG TAB PO (08:39)
[2017-03-15] MEDS: MEMANTINE 5MG TABLET (NAMENDA) PO ×2 (08:39→21:25)
[2017-03-15] MEDS: DONEPEZIL 5 MG TAB PO (21:25)
[2017-03-16] MEDS: amLODIPine 5 MG TAB PO (10:56)
[2017-03-16] MEDS: GABAPENTIN 100 MG CAP PO ×2 (10:56→20:53)
[2017-03-16] MEDS: MEMANTINE 5MG TABLET (NAMENDA) PO ×2 (10:56→20:53)
[2017-03-16] MEDS: BENAZEPRIL 20 MG TAB PO (10:56)
[2017-03-16] MEDS: risperiDONE 1 MG TAB PO (10:57)
[2017-03-16] MEDS: DONEPEZIL 5 MG TAB PO (20:53)
[2017-03-17] MEDS: MEMANTINE 5MG TABLET (NAMENDA) PO ×2 (10:23→20:30)
[2017-03-17] MEDS: amLODIPine 5 MG TAB PO (10:23)
[2017-03-17] MEDS: BENAZEPRIL 20 MG TAB PO (10:23)
[2017-03-17] MEDS: risperiDONE 1 MG TAB PO (10:23)
[2017-03-17] MEDS: GABAPENTIN 100 MG CAP PO ×2 (10:24→20:30)
[2017-03-17] MEDS: DONEPEZIL 5 MG TAB PO (20:30)
[2017-03-18] MEDS: BENAZEPRIL 20 MG TAB PO (08:27)
[2017-03-18] MEDS: risperiDONE 1 MG TAB PO (08:27)
[2017-03-18] MEDS: amLODIPine 5 MG TAB PO (08:27)
[2017-03-18] MEDS: GABAPENTIN 100 MG CAP PO ×2 (08:28→21:22)
[2017-03-18] MEDS: MEMANTINE 5MG TABLET (NAMENDA) PO ×2 (08:28→21:23)
[2017-03-18] MEDS: ACETAMINOPHEN TAB 650MG DOSE (2X325MG) PO ×2 (14:14→21:24)
[2017-03-18] MEDS: DONEPEZIL 5 MG TAB PO (21:23)
[2017-03-19] MEDS: amLODIPine 5 MG TAB PO (10:13)
[2017-03-19] MEDS: BENAZEPRIL 20 MG TAB PO (10:13)
[2017-03-19] MEDS: risperiDONE 1 MG TAB PO (10:13)
[2017-03-19] MEDS: GABAPENTIN 100 MG CAP PO ×2 (10:13→21:32)
[2017-03-19] MEDS: MEMANTINE 5MG TABLET (NAMENDA) PO ×2 (10:13→21:32)
[2017-03-19] MEDS: DONEPEZIL 5 MG TAB PO (21:32)
[2017-03-19] MEDS: ACETAMINOPHEN TAB 650MG DOSE (2X325MG) PO (21:34)
[2017-03-20] MEDS: BENAZEPRIL 20 MG TAB PO (08:42)
[2017-03-20] MEDS: risperiDONE 1 MG TAB PO (08:42)
[2017-03-20] MEDS: MEMANTINE 5MG TABLET (NAMENDA) PO ×2 (08:42→21:24)
[2017-03-20] MEDS: GABAPENTIN 100 MG CAP PO ×2 (08:42→21:24)
[2017-03-20] MEDS: amLODIPine 5 MG TAB PO (08:42)
[2017-03-20] MEDS: DONEPEZIL 5 MG TAB PO (21:24)
[2017-03-20] MEDS: ACETAMINOPHEN TAB 650MG DOSE (2X325MG) PO (21:26)
[2017-03-21] MEDS: ACETAMINOPHEN TAB 650MG DOSE (2X325MG) PO (04:27)
[2017-03-21] MEDS: GABAPENTIN 100 MG CAP PO (08:20)
[2017-03-21] MEDS: MEMANTINE 5MG TABLET (NAMENDA) PO (08:20)
[2017-03-21] MEDS: risperiDONE 1 MG TAB PO (08:20)
[2017-03-21] MEDS: BENAZEPRIL 20 MG TAB PO (08:20)
[2017-03-21] MEDS: amLODIPine 5 MG TAB PO (08:20)
[2017-03-21] MEDS: NAPROXEN 250 MG TAB PO (08:21)
== END 2017-03-21 12:15 | DRG 194 ==
LOC: M ED 03:49 → M ED INP 08:05 → M MSPAV 11:00
DX: J18.9 Pneumonia, unspecified organism (principal); F03.91 Unspecified dementia, unspecified severity, with behavioral disturbance; Z66 Do not resuscitate; N18.3 Chronic kidney disease, stage 3 (moderate); M54.16 Radiculopathy, lumbar region; I12.9 Hypertensive chronic kidney disease with stage 1 through stage 4 chronic kidney disease, or unspecified chronic kidney disease; E78.00 Pure hypercholesterolemia, unspecified; Z79.899 Other long term (current) drug therapy; Z91.030 Bee allergy status

== ENCOUNTER → 2017-03-22 | Outpatient (REF) | payer OTHER ==
[2017-03-22 08:23] LABS: BASO # 0.1 10^3/uL (0.0-0.2); BASO % 0.8 % (0.0-1.0); EOS # 0.1 10^3/uL (0.0-0.50); EOS % 2.3 % (0.0-3.0); HEMATOCRIT 35.5 % (42.0-52.0); HEMOGLOBIN 11.6 g/dl (14.0-18.0); IMMATURE GRANULOCYTE % 0.2 % (0-3.0); LYMPH # 2.2 10^3/uL (1.5-4.5); LYMPH % 35.7 % (24.0-44.0); MEAN CORPUSCULAR HEMOGLOBIN 30.6 pg (27.0-33.0); MEAN CORPUSCULAR HGB CONC 32.7 g/dl (32.0-36.5); MEAN CORPUSCULAR VOLUME 93.7 fl (80.0-96.0); MONO # 0.7 10^3/uL (0.0-0.8); MONO % 11.3 % (0.0-5.0); NEUTROPHILS % 49.7 % (36.0-66.0); PLATELET COUNT, AUTOMATED 147 10^3/uL (150-450); RED BLOOD COUNT 3.79 10^6/uL (4.30-6.10); RED CELL DISTRIBUTION WIDTH 13.7 % (11.5-14.5); WHITE BLOOD COUNT 6.1 10^3/uL (4.0-10.0)
[2017-03-22 09:00] LABS: ALBUMIN 3.7 GM/DL (3.2-5.2); ALBUMIN/GLOBULIN RATIO 1.54 (1.00-1.93); ALKALINE PHOSPHATASE 84 U/L (45-117); ALT/SGPT 24 U/L (12-78); ANION GAP 7 MEQ/L (8-16); AST/SGOT 18 U/L (7-37); BILIRUBIN,DIRECT 0.1 MG/DL (0.0-0.2); BILIRUBIN,TOTAL 0.5 MG/DL (0.2-1.0); BLOOD UREA NITROGEN 26 MG/DL (7-18); CALCIUM LEVEL 8.2 MG/DL (8.8-10.2); CARBON DIOXIDE LEVEL 27 MEQ/L (21-32); CHLORIDE LEVEL 110 MEQ/L (98-107); CHOLESTEROL LEVEL 177 MG/DL (<200); CHOLESTEROL RISK RATIO 3.277 (<5); CREATININE FOR GFR 1.05 MG/DL (0.70-1.30); GLOMERULAR FILTRATION RATE > 60.0 (>35); GLUCOSE, FASTING 90 MG/DL (70-100); HDL CHOLESTEROL 54 MG/DL (>40); LDL CHOLESTEROL 106.6 MG/DL (<100); NON-HDL-C 123 MG/DL; POTASSIUM SERUM 4.1 MEQ/L (3.5-5.1); SODIUM LEVEL 144 MEQ/L (136-145); THYROID STIMULATING HORMONE 0.676 uIU/ML (0.358-3.740); TOTAL PROTEIN 6.1 GM/DL (6.4-8.2); TRIGLYCERIDES LEVEL 82 MG/DL (<150)
== END ==
LOC: SKLAB6 13:00
DX: M25.551 Pain in right hip (principal); Z79.899 Other long term (current) drug therapy
CPT/HCPCS: 84443

== ENCOUNTER → 2017-05-01 | Outpatient (CLI) | payer OTHER | LOC: M PAIN 10:15 | DX: M54.5 Low back pain (principal); G89.29 Other chronic pain; I10 Essential (primary) hypertension; F03.90 Unspecified dementia, unspecified severity, without behavioral disturbance, psychotic disturbance, mood disturbance, and anxiety; E78.00 Pure hypercholesterolemia, unspecified; Z79.899 Other long term (current) drug therapy; Z87.891 Personal history of nicotine dependence; Z85.9 Personal history of malignant neoplasm, unspecified; Z91.030 Bee allergy status | CPT/HCPCS: G0463 ==

== ENCOUNTER 2017-06-01 18:29 | Inpatient (IN) | payer MEDICARE ==
[2017-06-01 20:06] LABS: BASO % 0.1 % (0.0-1.0); HEMATOCRIT 34.5 % (42.0-52.0); HEMOGLOBIN 11.4 g/dl (13.5-17.5); IMMATURE GRANULOCYTE % 0.8 % (0-3.0); LYMPH # 0.8 10^3/uL (1.5-4.5); LYMPH % 4.2 % (24.0-44.0); MEAN CORPUSCULAR HEMOGLOBIN 30.7 pg (27.0-33.0); MONO % 11.6 % (0.0-5.0); NEUTROPHILS # 15.8 10^3/uL (1.8-7.7); NEUTROPHILS % 83.3 % (36.0-66.0); PLATELET COUNT, AUTOMATED 116 10^3/uL (150-450); RED BLOOD COUNT 3.71 10^6/uL (4.30-6.10); RED CELL DISTRIBUTION WIDTH 13.7 % (11.5-14.5)
[2017-06-01 20:18] LABS: MUCUS, URINE RFX SMALL (NEGATIVE); RBC, URINE AUTO RFX 8 /HPF (0-3); SQUAM EPITHELIAL CELL UR AURFX 0 /HPF (0-6); WBC, URINE AUTO RFX 1 /HPF (0-3)
[2017-06-01 20:19] LABS: KETONE, URINE AUTO RFX TRACE mg/dL (NEGATIVE); LEUKOCYTE ESTERASE UR AUTO RFX NEGATIVE (NEGATIVE); NITRITE, URINE AUTO RFX NEGATIVE (NEGATIVE); SPECIFIC GRAVITY UR AUTO RFX 1.026 (1.002-1.035)
[2017-06-01 20:19] LABS: BEDSIDE GLUCOSE 135 MG/DL (83-110)
[2017-06-01 20:32] LABS: LACTIC ACID SEPSIS PROTOCOL 1.1 MMOL/L (0.4-2.0)
[2017-06-01 20:33] LABS: ALBUMIN 3.7 GM/DL (3.2-5.2); ALBUMIN/GLOBULIN RATIO 1.54 (1.00-1.93); ALKALINE PHOSPHATASE 89 U/L (45-117); ALT/SGPT 51 U/L (12-78); ANION GAP 7 MEQ/L (8-16); AST/SGOT 80 U/L (7-37); BILIRUBIN,DIRECT 0.4 MG/DL (0.0-0.2); BILIRUBIN,TOTAL 1.1 MG/DL (0.2-1.0); BLOOD UREA NITROGEN 35 MG/DL (7-18); CALCIUM LEVEL 8.6 MG/DL (8.8-10.2); CARBON DIOXIDE LEVEL 29 MEQ/L (21-32); CHLORIDE LEVEL 107 MEQ/L (98-107); CREATININE FOR GFR 1.15 MG/DL (0.70-1.30); GLOMERULAR FILTRATION RATE > 60.0 (>35); GLUCOSE, FASTING 131 MG/DL (70-100); LIPASE 140 U/L (73-393); SODIUM LEVEL 143 MEQ/L (136-145); TOTAL PROTEIN 6.1 GM/DL (6.4-8.2); TROPONIN I 0.03 NG/ML (< 0.10)
[2017-06-01 20:37] LABS: MONO # 2.2 10^3/uL (0.0-0.8); POSITIVE DIFF POS FLAG
[2017-06-01 20:42] LABS: CK-MB VALUE MASS 15.1 NG/ML (<3.6); CPK CREATINE PHOSPHOKINASE 2560 U/L (39-308); MB/CK RELATIVE INDEX 0.58 (< OR =4); THYROID STIMULATING HORMONE 0.707 uIU/ML (0.358-3.740)
[2017-06-01] MEDS: ACETAMINOPHEN 650 MG SUPP PR (20:46)
[2017-06-01] MEDS: GABAPENTIN 100 MG CAP PO (21:00)
[2017-06-01] MEDS: DULoxetine 20 MG CAP (CYMBALTA) PO (21:00)
[2017-06-01] MEDS: DONEPEZIL 5 MG TAB PO (21:00)
[2017-06-01] MEDS: SENOKOT S TAB PO (21:00)
[2017-06-01] MEDS: SIMVASTATIN 20 MG TAB PO (21:00)
[2017-06-01] MEDS: MEMANTINE 5MG TABLET (NAMENDA) PO (21:00)
[2017-06-01] MEDS ORDERED: ISOVUE-370 76% 100ML VIAL (Q9967) As Ordered (21:10)
[2017-06-01 22:04] LABS: AMMONIA 12 uMOL/L (<32)
[2017-06-01] MEDS ORDERED: ONDANSETRON 4MG/2ML VIAL (J2405) IV (23:00)
[2017-06-02] MEDS: NS 1,000 ML IV ×2 (00:36→12:20)
[2017-06-02] MEDS: cefTRIAXone SOD 1 GM in D5W MINI-BAG PLUS 50 ML IV (04:51)
[2017-06-02] MEDS: AZITHROMYCIN INJ 500 MG, VIAL MATE ADAPTER 1 EACH in D5W 250 ML IV (05:34)
[2017-06-02] MEDS: ACETAMINOPHEN 500 MG TAB PO ×2 (05:39→21:24)
[2017-06-02 06:06] LABS: BASO % 0.1 % (0.0-1.0); HEMATOCRIT 34.9 % (42.0-52.0); HEMOGLOBIN 11.3 g/dl (13.5-17.5); IMMATURE GRANULOCYTE % 1.4 % (0-3.0); LYMPH # 0.8 10^3/uL (1.5-4.5); LYMPH % 4.4 % (24.0-44.0); MEAN CORPUSCULAR HGB CONC 32.4 g/dl (32.0-36.5); MEAN CORPUSCULAR VOLUME 95.9 fl (80.0-96.0); MONO # 1.5 10^3/uL (0.0-0.8); MONO % 8.5 % (0.0-5.0); NEUTROPHILS # 15.1 10^3/uL (1.8-7.7); NEUTROPHILS % 85.6 % (36.0-66.0); PLATELET COUNT, AUTOMATED 108 10^3/uL (150-450); RED BLOOD COUNT 3.64 10^6/uL (4.30-6.10); RED CELL DISTRIBUTION WIDTH 13.9 % (11.5-14.5); WHITE BLOOD COUNT 17.6 10^3/uL (4.0-10.0)
[2017-06-02 06:22] LABS: ANION GAP 7 MEQ/L (8-16); BLOOD UREA NITROGEN 30 MG/DL (7-18); CALCIUM LEVEL 8.2 MG/DL (8.8-10.2); CARBON DIOXIDE LEVEL 27 MEQ/L (21-32); CHLORIDE LEVEL 109 MEQ/L (98-107); CREATININE FOR GFR 1.05 MG/DL (0.70-1.30); GLOMERULAR FILTRATION RATE > 60.0 (>35); GLUCOSE, FASTING 119 MG/DL (70-100); POTASSIUM SERUM 4.2 MEQ/L (3.5-5.1); SODIUM LEVEL 143 MEQ/L (136-145)
[2017-06-02] MEDS: GABAPENTIN 100 MG CAP PO ×2 (10:00→21:21)
[2017-06-02] MEDS: MEMANTINE 5MG TABLET (NAMENDA) PO ×2 (10:00→21:20)
[2017-06-02] MEDS: amLODIPine 5 MG TAB PO (10:00)
[2017-06-02] MEDS: SENOKOT S TAB PO ×2 (10:00→21:21)
[2017-06-02] MEDS: risperiDONE 1 MG TAB PO (10:01)
[2017-06-02] MEDS: BENAZEPRIL 20 MG TAB PO (10:01)
[2017-06-02] MEDS: ENOXAPARIN 40 MG/0.4 ML SYRINGE (J1650) SC (10:01)
[2017-06-02] MEDS: MOM 30ML SUSPENSION UDC PO (11:33)
[2017-06-02] MEDS ORDERED: NYSTATIN 100,000 UNITS/GM TOPICAL PWD 15 GM TOP (12:00)
[2017-06-02] MEDS: DULoxetine 20 MG CAP (CYMBALTA) PO (21:21)
[2017-06-02] MEDS: DONEPEZIL 5 MG TAB PO (21:21)
[2017-06-02] MEDS: SIMVASTATIN 20 MG TAB PO (21:22)
[2017-06-02] MEDS: VANCOMYCIN HCL 1,000 MG, VIAL MATE ADAPTER 1 EACH in D5W 250 ML IV (22:36)
[2017-06-03] MEDS: NS 1,000 ML IV ×3 (01:42→20:31)
[2017-06-03] MEDS: cefTRIAXone SOD 1 GM in D5W MINI-BAG PLUS 50 ML IV (04:26)
[2017-06-03] MEDS: AZITHROMYCIN INJ 500 MG, VIAL MATE ADAPTER 1 EACH in D5W 250 ML IV (05:07)
[2017-06-03 05:54] LABS: HEMATOCRIT 31.3 % (42.0-52.0); HEMOGLOBIN 10.3 g/dl (13.5-17.5); MEAN CORPUSCULAR HEMOGLOBIN 31.3 pg (27.0-33.0); MEAN CORPUSCULAR HGB CONC 32.9 g/dl (32.0-36.5); MEAN CORPUSCULAR VOLUME 95.1 fl (80.0-96.0); RED BLOOD COUNT 3.29 10^6/uL (4.30-6.10); RED CELL DISTRIBUTION WIDTH 14.3 % (11.5-14.5); WHITE BLOOD COUNT 13.7 10^3/uL (4.0-10.0)
[2017-06-03 06:13] LABS: PLATELET COUNT, AUTOMATED 91 10^3/uL (150-450); POSITIVE MORPH POS FLAG
[2017-06-03 06:14] LABS: ADD MANUAL DIFFER YES; DIFF SLIDE NUMBER 48; IMMATURE PLATELET FRACTION % 8.4 % (0.0-10.9); PLATELET F 96
[2017-06-03 06:36] LABS: ANION GAP 8 MEQ/L (8-16); BLOOD UREA NITROGEN 46 MG/DL (7-18); CALCIUM LEVEL 8.1 MG/DL (8.8-10.2); CARBON DIOXIDE LEVEL 25 MEQ/L (21-32); CHLORIDE LEVEL 109 MEQ/L (98-107); CREATININE FOR GFR 1.34 MG/DL (0.70-1.30); GLOMERULAR FILTRATION RATE 54.1 (>35); GLUCOSE, FASTING 107 MG/DL (70-100); POTASSIUM SERUM 4.6 MEQ/L (3.5-5.1); SODIUM LEVEL 142 MEQ/L (136-145)
[2017-06-03 06:42] LABS: BANDS 8 % (< 11); LYMPHOCYTES 12 % (16-52); MONOCYTES 3 % (0-8); NEUTROPHILS 77 % (35-75); PLATELET ESTIMATE DECREASED (NORMAL); POIKILOCYTOSIS 1+
[2017-06-03] MEDS: SENOKOT S TAB PO ×2 (10:12→20:30)
[2017-06-03] MEDS: GABAPENTIN 100 MG CAP PO ×2 (10:12→20:30)
[2017-06-03] MEDS: ENOXAPARIN 40 MG/0.4 ML SYRINGE (J1650) SC (10:12)
[2017-06-03] MEDS: MEMANTINE 5MG TABLET (NAMENDA) PO ×2 (10:13→20:30)
[2017-06-03] MEDS: risperiDONE 1 MG TAB PO (10:13)
[2017-06-03] MEDS ORDERED: PILL CRUSHER/CUTTER 1 EACH XX (10:15)
[2017-06-03] MEDS: BENAZEPRIL 20 MG TAB PO (10:15)
[2017-06-03] MEDS: amLODIPine 5 MG TAB PO (10:16)
[2017-06-03] MEDS: ACETAMINOPHEN 500 MG TAB PO (10:25)
[2017-06-03] MEDS: VANCOMYCIN HCL 1,000 MG, VIAL MATE ADAPTER 1 EACH in D5W 250 ML IV (10:28)
[2017-06-03] MEDS: NAPROXEN 250 MG TAB PO (13:19)
[2017-06-03] MEDS: DULoxetine 20 MG CAP (CYMBALTA) PO (20:30)
[2017-06-03] MEDS: MOM 30ML SUSPENSION UDC PO (20:31)
[2017-06-03] MEDS: SIMVASTATIN 20 MG TAB PO (20:31)
[2017-06-03] MEDS: DONEPEZIL 5 MG TAB PO (20:31)
[2017-06-04] MEDS: ASPIRIN 325 MG TAB PO (00:07)
[2017-06-04] MEDS: NS 1,000 ML IV (01:48)
[2017-06-04] MEDS: cefTRIAXone SOD 1 GM in D5W MINI-BAG PLUS 50 ML IV (04:59)
[2017-06-04] MEDS: AZITHROMYCIN INJ 500 MG, VIAL MATE ADAPTER 1 EACH in D5W 250 ML IV (05:54)
[2017-06-04] MEDS: BISACODYL 5 MG TAB PO (05:54)
[2017-06-04 06:02] LABS: HEMATOCRIT 29.5 % (42.0-52.0); HEMOGLOBIN 9.9 g/dl (13.5-17.5); MEAN CORPUSCULAR HEMOGLOBIN 31.5 pg (27.0-33.0); MEAN CORPUSCULAR HGB CONC 33.6 g/dl (32.0-36.5); MEAN CORPUSCULAR VOLUME 93.9 fl (80.0-96.0); PLATELET COUNT, AUTOMATED 120 10^3/uL (150-450); RED BLOOD COUNT 3.14 10^6/uL (4.30-6.10); RED CELL DISTRIBUTION WIDTH 14.2 % (11.5-14.5); WHITE BLOOD COUNT 12.7 10^3/uL (4.0-10.0)
[2017-06-04 06:06] LABS: POSITIVE MORPH POS FLAG
[2017-06-04 06:08] LABS: ADD MANUAL DIFFER YES; DIFF SLIDE NUMBER 69
[2017-06-04 06:18] LABS: ANION GAP 5 MEQ/L (8-16); BLOOD UREA NITROGEN 39 MG/DL (7-18); CALCIUM LEVEL 7.7 MG/DL (8.8-10.2); CARBON DIOXIDE LEVEL 26 MEQ/L (21-32); CHLORIDE LEVEL 111 MEQ/L (98-107); CREATININE FOR GFR 1.01 MG/DL (0.70-1.30); GLOMERULAR FILTRATION RATE > 60.0 (>35); GLUCOSE, FASTING 101 MG/DL (70-100); POTASSIUM SERUM 3.9 MEQ/L (3.5-5.1); SODIUM LEVEL 142 MEQ/L (136-145)
[2017-06-04 06:39] LABS: BANDS 1 % (< 11); LYMPHOCYTES 11 % (16-52); MONOCYTES 2 % (0-8); NEUTROPHILS 86 % (35-75); PLATELET ESTIMATE DECREASED (NORMAL)
[2017-06-04] MEDS: risperiDONE 1 MG TAB PO (07:38)
[2017-06-04] MEDS: MEMANTINE 5MG TABLET (NAMENDA) PO (07:38)
[2017-06-04] MEDS: GABAPENTIN 100 MG CAP PO (07:38)
[2017-06-04] MEDS: SENOKOT S TAB PO (07:38)
[2017-06-04] MEDS: amLODIPine 5 MG TAB PO (07:38)
[2017-06-04] MEDS: BENAZEPRIL 20 MG TAB PO (07:38)
[2017-06-04] MEDS: ENOXAPARIN 40 MG/0.4 ML SYRINGE (J1650) SC (07:39)
[2017-06-04] MEDS: VANCOMYCIN HCL 1,000 MG, VIAL MATE ADAPTER 1 EACH in D5W 250 ML IV (10:45)
[2017-06-04 11:10] LABS: VANCOMYCIN LEVEL TROUGH 5.6 UG/ML (10.0-20.0)
== END 2017-06-04 13:59 | DRG 605 ==
LOC: M MSPAV 06-02 01:21 → M ED 18:29 → M ED INP 22:47
DX: S00.83XA Contusion of other part of head, initial encounter (principal); R29.6 Repeated falls; R50.9 Fever, unspecified; W18.30XA Fall on same level, unspecified, initial encounter; Y92.129 Unspecified place in nursing home as the place of occurrence of the external cause; F03.90 Unspecified dementia, unspecified severity, without behavioral disturbance, psychotic disturbance, mood disturbance, and anxiety; Z79.899 Other long term (current) drug therapy; Z91.038 Other insect allergy status; I12.9 Hypertensive chronic kidney disease with stage 1 through stage 4 chronic kidney disease, or unspecified chronic kidney disease; N40.0 Benign prostatic hyperplasia without lower urinary tract symptoms; N18.3 Chronic kidney disease, stage 3 (moderate); M51.36 Other intervertebral disc degeneration, lumbar region; K59.00 Constipation, unspecified; E78.5 Hyperlipidemia, unspecified; D72.829 Elevated white blood cell count, unspecified; K80.20 Calculus of gallbladder without cholecystitis without obstruction

== ENCOUNTER → 2017-06-17 | Outpatient (CLI) | payer MEDICARE | LOC: M PAIN 14:15 | DX: M54.16 Radiculopathy, lumbar region (principal); G89.29 Other chronic pain; I10 Essential (primary) hypertension; E78.00 Pure hypercholesterolemia, unspecified; Z79.899 Other long term (current) drug therapy; Z91.030 Bee allergy status; Z87.891 Personal history of nicotine dependence; Z87.820 Personal history of traumatic brain injury | CPT/HCPCS: G0463 ==

== ENCOUNTER → 2017-06-20 | Outpatient (REF) | payer MEDICARE ==
[2017-06-20 08:30] LABS: BASO % 0.8 % (0.0-1.0); EOS # 0.1 10^3/uL (0.0-0.50); HEMATOCRIT 31.6 % (42.0-52.0); HEMOGLOBIN 10.2 g/dl (13.5-17.5); IMMATURE GRANULOCYTE % 0.2 % (0-3.0); LYMPH # 2.1 10^3/uL (1.5-4.5); LYMPH % 42.8 % (24.0-44.0); MEAN CORPUSCULAR HEMOGLOBIN 30.8 pg (27.0-33.0); MEAN CORPUSCULAR HGB CONC 32.3 g/dl (32.0-36.5); MEAN CORPUSCULAR VOLUME 95.5 fl (80.0-96.0); MONO # 0.5 10^3/uL (0.0-0.8); NEUTROPHILS # 2.3 10^3/uL (1.8-7.7); NEUTROPHILS % 45.2 % (36.0-66.0); PLATELET COUNT, AUTOMATED 247 10^3/uL (150-450); RED BLOOD COUNT 3.31 10^6/uL (4.30-6.10); RED CELL DISTRIBUTION WIDTH 13.5 % (11.5-14.5)
[2017-06-20 09:00] LABS: ANION GAP 7 MEQ/L (8-16); BLOOD UREA NITROGEN 27 MG/DL (7-18); CALCIUM LEVEL 8.1 MG/DL (8.8-10.2); CARBON DIOXIDE LEVEL 28 MEQ/L (21-32); CHLORIDE LEVEL 110 MEQ/L (98-107); CREATININE FOR GFR 1.09 MG/DL (0.70-1.30); GLOMERULAR FILTRATION RATE > 60.0 (>35); GLUCOSE, FASTING 131 MG/DL (70-100); POTASSIUM SERUM 4.2 MEQ/L (3.5-5.1); SODIUM LEVEL 145 MEQ/L (136-145)
== END ==
LOC: SKLAB6 07:00
DX: E78.5 Hyperlipidemia, unspecified (principal); I10 Essential (primary) hypertension

== ENCOUNTER → 2017-06-26 | Outpatient (REF) | payer MEDICARE, SELFPAY ==
[2017-06-26 15:50] LABS: HEMATOCRIT 31.9 % (42.0-52.0); HEMOGLOBIN 10.4 g/dl (13.5-17.5); MEAN CORPUSCULAR HEMOGLOBIN 30.9 pg (27.0-33.0); MEAN CORPUSCULAR HGB CONC 32.6 g/dl (32.0-36.5); MEAN CORPUSCULAR VOLUME 94.7 fl (80.0-96.0); PLATELET COUNT, AUTOMATED 176 10^3/uL (150-450); RED BLOOD COUNT 3.37 10^6/uL (4.30-6.10); RED CELL DISTRIBUTION WIDTH 13.5 % (11.5-14.5); WHITE BLOOD COUNT 5.6 10^3/uL (4.0-10.0)
[2017-06-26 16:14] LABS: ANION GAP 6 MEQ/L (8-16); BLOOD UREA NITROGEN 18 MG/DL (7-18); CALCIUM LEVEL 8.4 MG/DL (8.8-10.2); CARBON DIOXIDE LEVEL 29 MEQ/L (21-32); CHLORIDE LEVEL 109 MEQ/L (98-107); CREATININE FOR GFR 0.98 MG/DL (0.70-1.30); GLOMERULAR FILTRATION RATE > 60.0 (>35); GLUCOSE, FASTING 100 MG/DL (70-100); NT-PRO BNP 612 PG/ML (<450); SODIUM LEVEL 144 MEQ/L (136-145)
== END ==
LOC: SKLAB6 07:00
DX: R60.9 Edema, unspecified (principal); E78.5 Hyperlipidemia, unspecified; I10 Essential (primary) hypertension
CPT/HCPCS: 80048

== ENCOUNTER → 2017-07-29 | Outpatient (REF) | payer MEDICARE, OTHER ==
[2017-07-29 14:02] LABS: APPEARANCE, URINE CLEAR (CLEAR); BACTERIA, URINE AUTO NEGATIVE (NEGATIVE); BILIRUBIN, URINE AUTO NEGATIVE (NEGATIVE); BLOOD, URINE BLOOD 1+ (NEGATIVE); COLOR, URINE YELLOW (YELLOW); GLUCOSE, URINE (UA) AUTO NEGATIVE (NEGATIVE); KETONE, URINE AUTO TRACE mg/dL (NEGATIVE); LEUKOCYTE ESTERASE, URINE AUTO NEGATIVE (NEGATIVE); MUCUS, URINE SMALL (NEGATIVE); NITRITE, URINE AUTO NEGATIVE (NEGATIVE); PROTEIN, URINE AUTO 1+ mg/dL (NEGATIVE); RBC, URINE AUTO 11 /HPF (0-3); SPECIFIC GRAVITY URINE AUTO 1.024 (1.002-1.035); SQUAMOUS EPITHELIAL CELL UR AU 0 /HPF (0-6); WBC, URINE AUTO 1 /HPF (0-3)
== END ==
LOC: SKLAB6 13:20
DX: R41.82 Altered mental status, unspecified (principal)
CPT/HCPCS: 81001

== ENCOUNTER → 2017-09-19 | Outpatient (REF) | payer MEDICARE, OTHER ==
[2017-09-19 08:57] LABS: BASO % 0.5 % (0.0-1.0); EOS # 0.2 10^3/uL (0.0-0.50); EOS % 3.5 % (0.0-3.0); HEMATOCRIT 35.2 % (42.0-52.0); HEMOGLOBIN 11.4 g/dl (13.5-17.5); IMMATURE GRANULOCYTE % 0.2 % (0-3.0); LYMPH # 2.2 10^3/uL (1.5-4.5); LYMPH % 40.9 % (24.0-44.0); MEAN CORPUSCULAR HEMOGLOBIN 30.9 pg (27.0-33.0); MEAN CORPUSCULAR HGB CONC 32.4 g/dl (32.0-36.5); MEAN CORPUSCULAR VOLUME 95.4 fl (80.0-96.0); MONO # 0.5 10^3/uL (0.0-0.8); MONO % 9.9 % (0.0-5.0); NEUTROPHILS # 2.5 10^3/uL (1.8-7.7); PLATELET COUNT, AUTOMATED 110 10^3/uL (150-450); RED BLOOD COUNT 3.69 10^6/uL (4.30-6.10); RED CELL DISTRIBUTION WIDTH 13.8 % (11.5-14.5); WHITE BLOOD COUNT 5.5 10^3/uL (4.0-10.0)
[2017-09-19 09:35] LABS: ANION GAP 8 MEQ/L (8-16); BLOOD UREA NITROGEN 18 MG/DL (7-18); CALCIUM LEVEL 8.6 MG/DL (8.8-10.2); CARBON DIOXIDE LEVEL 31 MEQ/L (21-32); CHLORIDE LEVEL 107 MEQ/L (98-107); CREATININE FOR GFR 1.01 MG/DL (0.70-1.30); GLOMERULAR FILTRATION RATE > 60.0 (>35); GLUCOSE, FASTING 98 MG/DL (70-100); POTASSIUM SERUM 4.2 MEQ/L (3.5-5.1); SODIUM LEVEL 146 MEQ/L (136-145)
== END ==
LOC: SKLAB6 07:00
DX: D64.9 Anemia, unspecified (principal); R60.9 Edema, unspecified
CPT/HCPCS: 36415

== ENCOUNTER → 2017-12-18 | Outpatient (CLI) | payer MEDICARE | LOC: M PAIN 13:00 | DX: M54.16 Radiculopathy, lumbar region (principal); I10 Essential (primary) hypertension; E78.00 Pure hypercholesterolemia, unspecified; Z85.828 Personal history of other malignant neoplasm of skin; F03.90 Unspecified dementia, unspecified severity, without behavioral disturbance, psychotic disturbance, mood disturbance, and anxiety; N40.0 Benign prostatic hyperplasia without lower urinary tract symptoms; Z79.899 Other long term (current) drug therapy; Z91.030 Bee allergy status | CPT/HCPCS: G0463 ==

== ENCOUNTER → 2017-12-19 | Outpatient (REF) | payer MEDICARE, OTHER, MEDICAID ==
[2017-12-19 09:06] LABS: BASO % 0.8 % (0.0-1.0); EOS # 0.2 10^3/uL (0.0-0.50); EOS % 3.4 % (0.0-3.0); HEMATOCRIT 35.3 % (42.0-52.0); HEMOGLOBIN 11.3 g/dl (13.5-17.5); IMMATURE GRANULOCYTE % 0.2 % (0-3.0); LYMPH % 38.9 % (24.0-44.0); MEAN CORPUSCULAR HEMOGLOBIN 30.8 pg (27.0-33.0); MEAN CORPUSCULAR VOLUME 96.2 fl (80.0-96.0); MONO # 0.4 10^3/uL (0.0-0.8); NEUTROPHILS # 2.5 10^3/uL (1.8-7.7); NEUTROPHILS % 48.7 % (36.0-66.0); PLATELET COUNT, AUTOMATED 116 10^3/uL (150-450); RED BLOOD COUNT 3.67 10^6/uL (4.30-6.10); WHITE BLOOD COUNT 5.2 10^3/uL (4.0-10.0)
[2017-12-19 09:12] LABS: ANION GAP 7 MEQ/L (8-16); BLOOD UREA NITROGEN 30 MG/DL (7-18); CALCIUM LEVEL 8.6 MG/DL (8.8-10.2); CARBON DIOXIDE LEVEL 27 MEQ/L (21-32); CHLORIDE LEVEL 107 MEQ/L (98-107); GLOMERULAR FILTRATION RATE > 60.0 (>35); GLUCOSE, FASTING 127 MG/DL (70-100); POTASSIUM SERUM 4.1 MEQ/L (3.5-5.1); SODIUM LEVEL 141 MEQ/L (136-145)
== END ==
LOC: SKLAB6 07:00
DX: D64.9 Anemia, unspecified (principal); Z79.899 Other long term (current) drug therapy
CPT/HCPCS: 80048

== ENCOUNTER → 2018-01-09 | Outpatient (CLI) | payer MEDICARE ==
[~2018-01-09] MED LIST changes: -BABY81CH OR; +BUPIVACAINE HCL 0.25% 30 ML VIAL As Ordered; -SILD50TA PO; -TERA2CAP PO; +TRIAMCINOLONE ACETONIDE SUSP 40 MG/ML VIAL (J3301) As Ordered; -ZOCO40TA PO; -[UNRECOGNIZED DRUG - CODE] PO; -[UNRECOGNIZED DRUG - OTHER]
== END ==
LOC: M PAIN 11:00
DX: M79.18 Myalgia, other site (principal); M25.512 Pain in left shoulder; I10 Essential (primary) hypertension; E78.00 Pure hypercholesterolemia, unspecified; Z79.899 Other long term (current) drug therapy; Z91.030 Bee allergy status; Z87.891 Personal history of nicotine dependence
CPT/HCPCS: J3301

== ENCOUNTER → 2018-02-28 | Outpatient (REF) | payer MEDICARE ==
[~2018-02-28] MED LIST changes: +ALEV220C2 PO; +AMLO5TAB6 PO; +AMOX500T2 PO; +Acetaminophen Tab PO; +BABY81CH OR; +BEETAB PO; +BENA20TA PO; +BENA20TA6 PO; +BENA20TA8 PO; +BISA10SU4 PR; -BUPIVACAINE HCL 0.25% 30 ML VIAL As Ordered; +CEFD300CAP PO; +DONETAB5 PO; +DULO1CAP PO; +ENEMENE4 PR; +EPIP0.3I2 INJ; +FEVE650S3 PR; +GABA-1171 PO; +MEMA1TAB2 PO; +MILK120011 PO; +NAPR-885 PO; +NAPR250T82 PO; +RISP1TAB3 PO; +RISP1TAB42 PO; +SILD50TA PO; +SIMV20TA2 PO; +TERA2CAP PO; +TERA2CAP3 PO; -TRIAMCINOLONE ACETONIDE SUSP 40 MG/ML VIAL (J3301) As Ordered; +TYLE325T5 PO; +ZOCO40TA PO; +[UNRECOGNIZED DRUG - CODE] PO; +[UNRECOGNIZED DRUG - OTHER]
--- NOTE | 2018-02-28 20:40 | REP ---
RIGHT HIP: 02/28/2018. Comparison: Bilateral hips 06/01/2017. Clinical history: Pain after a fall. Findings: Two-views show no visible or displaced fracture, avulsion or subluxation. Hip joint space slightly narrowed centrally. Iliac wings, acetabulum, pubic rami without fracture. The sacrum and sacral ala were unremarkable. Degenerative changes in the spine. Impression: 1. Degenerative changes about the spine and hip, but no visible or displaced fracture. If you have a high clinical suspicion based on persistent tenderness or abnormal physical examination, CT may be helpful. Electronically Signed by Jm Clarke MD 03/01/2018 09:14 A
--- NOTE | 2018-02-28 20:41 | REP ---
RIGHT FEMUR: 02/28/2018. Clinical history: Trauma, patient fell. Findings: Study reviewed in conjunction with the right hip this date. Visualized femoral shaft is intact. There is spurring at the quadriceps tendon on the patella. There is no fracture of the distal femur, its condyles or the patella on these images. 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 Impression: 1. No visible or displaced fracture. Electronically Signed by Jm Clarke MD 03/01/2018 09:15 A
== END ==
LOC: M RAD 19:19 → SKLAB6 19:19
PROVIDERS: ATTEND Family Medicine
DX: M25.551 Pain in right hip (principal)

== ENCOUNTER → 2018-03-10 | Outpatient (REF) | payer MEDICARE ==
[2018-03-10 13:59] LABS: HEMATOCRIT 31.5 % (42.0-52.0); HEMOGLOBIN 10.3 g/dl (13.5-17.5); MEAN CORPUSCULAR HEMOGLOBIN 31.7 pg (27.0-33.0); MEAN CORPUSCULAR HGB CONC 32.7 g/dl (32.0-36.5); MEAN CORPUSCULAR VOLUME 96.9 fl (80.0-96.0); PLATELET COUNT, AUTOMATED 139 10^3/uL (150-450); RED BLOOD COUNT 3.25 10^6/uL (4.30-6.10)
[2018-03-10 14:27] LABS: BLOOD UREA NITROGEN 26 MG/DL (7-18); CALCIUM LEVEL 8.1 MG/DL (8.8-10.2); CARBON DIOXIDE LEVEL 27 MEQ/L (21-32); CHLORIDE LEVEL 108 MEQ/L (98-107); CREATININE FOR GFR 1.06 MG/DL (0.70-1.30); GLOMERULAR FILTRATION RATE > 60.0 (>35); GLUCOSE, FASTING 135 MG/DL (70-100); NT-PRO BNP 496 PG/ML (<450); POTASSIUM SERUM 4.2 MEQ/L (3.5-5.1); SODIUM LEVEL 142 MEQ/L (136-145)
== END ==
LOC: SKLAB6 07:00
PROVIDERS: ATTEND Family Medicine
DX: F03.90 Unspecified dementia, unspecified severity, without behavioral disturbance, psychotic disturbance, mood disturbance, and anxiety (principal); E78.5 Hyperlipidemia, unspecified; I10 Essential (primary) hypertension

== ENCOUNTER → 2018-03-17 | Outpatient (REF) | payer MEDICARE ==
[2018-03-17 09:08] LABS: BLOOD UREA NITROGEN 22 MG/DL (7-18); CALCIUM LEVEL 8.7 MG/DL (8.8-10.2); CARBON DIOXIDE LEVEL 29 MEQ/L (21-32); CHLORIDE LEVEL 106 MEQ/L (98-107); CREATININE FOR GFR 1.21 MG/DL (0.70-1.30); GLOMERULAR FILTRATION RATE > 60.0 (>35); GLUCOSE, FASTING 125 MG/DL (70-100); POTASSIUM SERUM 4.3 MEQ/L (3.5-5.1); SODIUM LEVEL 142 MEQ/L (136-145)
== END ==
LOC: SKLAB6 07:00
PROVIDERS: ATTEND Family Medicine
DX: F03.90 Unspecified dementia, unspecified severity, without behavioral disturbance, psychotic disturbance, mood disturbance, and anxiety (principal); E78.5 Hyperlipidemia, unspecified; I10 Essential (primary) hypertension

== ENCOUNTER → 2018-03-27 | Outpatient (REF) | payer MEDICARE ==
[2018-03-27 08:28] LABS: BASO % 0.8 % (0.0-1.0); EOS # 0.2 10^3/uL (0.0-0.50); EOS % 3.8 % (0.0-3.0); HEMATOCRIT 31.7 % (42.0-52.0); HEMOGLOBIN 10.2 g/dl (13.5-17.5); LYMPH # 1.4 10^3/uL (1.5-4.5); LYMPH % 27.5 % (24.0-44.0); MEAN CORPUSCULAR HEMOGLOBIN 31.7 pg (27.0-33.0); MEAN CORPUSCULAR HGB CONC 32.2 g/dl (32.0-36.5); MEAN CORPUSCULAR VOLUME 98.4 fl (80.0-96.0); MONO # 0.8 10^3/uL (0.0-0.8); MONO % 16.5 % (0.0-5.0); NEUTROPHILS # 2.6 10^3/uL (1.8-7.7); NEUTROPHILS % 51.2 % (36.0-66.0); PLATELET COUNT, AUTOMATED 117 10^3/uL (150-450); RED BLOOD COUNT 3.22 10^6/uL (4.30-6.10)
[2018-03-27 08:57] LABS: ALBUMIN 3.4 GM/DL (3.2-5.2); ALT/SGPT 18 U/L (12-78); BILIRUBIN,DIRECT 0.1 MG/DL (0.0-0.2); BILIRUBIN,TOTAL 0.4 MG/DL (0.2-1.0); BLOOD UREA NITROGEN 26 MG/DL (7-18); CALCIUM LEVEL 7.9 MG/DL (8.8-10.2); CARBON DIOXIDE LEVEL 29 MEQ/L (21-32); CHLORIDE LEVEL 106 MEQ/L (98-107); CHOLESTEROL LEVEL 125 MG/DL (<200); CHOLESTEROL RISK RATIO 2.272 (<5); CREATININE FOR GFR 1.04 MG/DL (0.70-1.30); GLOMERULAR FILTRATION RATE > 60.0 (>35); GLUCOSE, FASTING 96 MG/DL (70-100); HDL CHOLESTEROL 55 MG/DL (>40); LDL CHOLESTEROL 54 MG/DL (<100); NON-HDL-C 70 MG/DL; POTASSIUM SERUM 4.4 MEQ/L (3.5-5.1); SODIUM LEVEL 142 MEQ/L (136-145); TRIGLYCERIDES LEVEL 78 MG/DL (<150)
== END ==
LOC: SKLAB6 07:00
PROVIDERS: ATTEND Family Medicine
DX: F03.90 Unspecified dementia, unspecified severity, without behavioral disturbance, psychotic disturbance, mood disturbance, and anxiety (principal); E78.5 Hyperlipidemia, unspecified; Z79.899 Other long term (current) drug therapy

== ENCOUNTER → 2018-06-19 | Outpatient (REF) | payer MEDICARE, MEDICAID ==
[2018-06-19 08:35] LABS: BLOOD UREA NITROGEN 19 MG/DL (7-18); CALCIUM LEVEL 8.4 MG/DL (8.8-10.2); CARBON DIOXIDE LEVEL 31 MEQ/L (21-32); CHLORIDE LEVEL 108 MEQ/L (98-107); CREATININE FOR GFR 1.08 MG/DL (0.70-1.30); GLOMERULAR FILTRATION RATE > 60.0 (>35); GLUCOSE, FASTING 88 MG/DL (70-100); POTASSIUM SERUM 4.2 MEQ/L (3.5-5.1); SODIUM LEVEL 144 MEQ/L (136-145)
[2018-06-19 08:36] LABS: BASO % 0.7 % (0.0-1.0); EOS # 0.2 10^3/uL (0.0-0.50); EOS % 3.3 % (0.0-3.0); HEMATOCRIT 34.4 % (42.0-52.0); HEMOGLOBIN 11.2 g/dl (13.5-17.5); LYMPH % 33.9 % (24.0-44.0); MEAN CORPUSCULAR HEMOGLOBIN 32.1 pg (27.0-33.0); MEAN CORPUSCULAR HGB CONC 32.6 g/dl (32.0-36.5); MEAN CORPUSCULAR VOLUME 98.6 fl (80.0-96.0); MONO # 0.7 10^3/uL (0.0-0.8); MONO % 11.6 % (0.0-5.0); NEUTROPHILS % 50.3 % (36.0-66.0); PLATELET COUNT, AUTOMATED 127 10^3/uL (150-450); RED BLOOD COUNT 3.49 10^6/uL (4.30-6.10)
== END ==
LOC: SKLAB6 07:00
PROVIDERS: ATTEND Family Medicine
DX: I10 Essential (primary) hypertension (principal); D64.9 Anemia, unspecified; E78.5 Hyperlipidemia, unspecified

== ENCOUNTER → 2018-09-18 | Outpatient (REF) | payer MEDICARE, MEDICAID ==
[~2018-09-18] MED LIST changes: -DULO1CAP PO; +DULO1CAP4 PO
[2018-09-18 08:04] LABS: BASO % 0.6 % (0.0-1.0); EOS # 0.3 10^3/uL (0.0-0.50); EOS % 4.7 % (0.0-3.0); HEMATOCRIT 33.7 % (42.0-52.0); HEMOGLOBIN 10.7 g/dl (13.5-17.5); LYMPH # 2.3 10^3/uL (1.5-4.5); LYMPH % 43.3 % (24.0-44.0); MEAN CORPUSCULAR HGB CONC 31.8 g/dl (32.0-36.5); MEAN CORPUSCULAR VOLUME 97.7 fl (80.0-96.0); MONO # 0.7 10^3/uL (0.0-0.8); MONO % 12.8 % (0.0-5.0); NEUTROPHILS % 38.4 % (36.0-66.0); PLATELET COUNT, AUTOMATED 127 10^3/uL (150-450); RED BLOOD COUNT 3.45 10^6/uL (4.30-6.10); WHITE BLOOD COUNT 5.3 10^3/uL (4.0-10.0)
[2018-09-18 08:12] LABS: BLOOD UREA NITROGEN 23 MG/DL (7-18); CALCIUM LEVEL 8.3 MG/DL (8.8-10.2); CARBON DIOXIDE LEVEL 30 MEQ/L (21-32); CHLORIDE LEVEL 110 MEQ/L (98-107); CREATININE FOR GFR 1.14 MG/DL (0.70-1.30); GLOMERULAR FILTRATION RATE > 60.0 (>35); GLUCOSE, FASTING 88 MG/DL (70-100); POTASSIUM SERUM 4.3 MEQ/L (3.5-5.1); SODIUM LEVEL 143 MEQ/L (136-145)
== END ==
LOC: SKLAB6 07:00
PROVIDERS: ATTEND Family Medicine
DX: Z79.899 Other long term (current) drug therapy (principal); I10 Essential (primary) hypertension

== ENCOUNTER → 2018-12-24 | Outpatient (REF) | payer MEDICARE, MEDICAID | LOC: M LAB 19:41 → SKLAB6 19:41 | PROVIDERS: ATTEND Family Medicine | DX: J06.9 Acute upper respiratory infection, unspecified (principal) ==

== ENCOUNTER → 2018-12-25 | Outpatient (REF) | payer MEDICARE, MEDICAID ==
[2018-12-25 09:12] LABS: BASO % 0.8 % (0.0-1.0); EOS # 0.3 10^3/uL (0.0-0.5); HEMOGLOBIN 10.8 g/dl (13.5-17.5); LYMPH # 2.1 10^3/uL (1.5-5.0); LYMPH % 39.4 % (24.0-44.0); MEAN CORPUSCULAR HEMOGLOBIN 31.6 pg (27.0-33.0); MEAN CORPUSCULAR HGB CONC 30.9 g/dl (32.0-36.5); MEAN CORPUSCULAR VOLUME 102.3 fl (80.0-96.0); MONO # 0.5 10^3/uL (0.0-0.8); NEUTROPHILS # 2.4 10^3/uL (1.5-8.5); NEUTROPHILS % 45.6 % (36.0-66.0); PLATELET COUNT, AUTOMATED 131 10^3/uL (150-450); RED BLOOD COUNT 3.42 10^6/uL (4.30-6.10); WHITE BLOOD COUNT 5.2 10^3/uL (4.0-10.0)
[2018-12-25 09:41] LABS: CALCIUM LEVEL 8.3 MG/DL (8.8-10.2); CREATININE FOR GFR 1.34 MG/DL (0.70-1.30); GLOMERULAR FILTRATION RATE 53.8 (>35); POTASSIUM SERUM 4.4 MEQ/L (3.5-5.1)
== END ==
LOC: SKLAB6 07:00
PROVIDERS: ATTEND Family Medicine
DX: Z79.899 Other long term (current) drug therapy (principal)

== ENCOUNTER → 2019-01-18 | Outpatient (REF) | payer MEDICARE, MEDICAID ==
[~2019-01-18] MED LIST changes: +MEMA10TA19 PO; -MEMA1TAB2 PO; -SIMV20TA2 PO; +SIMV20TA22 PO
--- NOTE | 2019-01-18 13:23 | REP ---
AP LATERAL LEFT HAND: 01/18/2019. CLINICAL HISTORY: Bruising and swelling of the hand. FINDINGS: There were no prior studies. Technologist's notes indicate the patient not able to cooperate fully. There is marked narrowing and sclerosis at the 1st CMC joint. There is a nondisplaced fracture of the proximal metaphysis of the proximal phalanx of that thumb near the joint. Remainder of the 1st metacarpal and MCP joint were intact. The other metacarpals and phalanges show some degenerative changes at the all joints, greatest in the DIP joints with sclerosis and narrowing along with spur formation. The other carpal bones, distal radius, and ulna are intact. IMPRESSION: 1. 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 Other degenerative changes are seen. No other fractures. Prominent soft tissue swelling about the hand. Electronically Signed by Jm Clarke MD 01/18/2019 05:13 P
== END ==
LOC: SKLAB6 11:09
PROVIDERS: ATTEND Family Medicine
DX: S62.255A Nondisplaced fracture of neck of first metacarpal bone, left hand, initial encounter for closed fracture (principal); M18.9 Osteoarthritis of first carpometacarpal joint, unspecified; X58.XXXA Exposure to other specified factors, initial encounter

== ENCOUNTER → 2019-03-26 | Outpatient (REF) | payer MEDICARE ==
[2019-03-26 07:41] LABS: HEMATOCRIT 30.9 % (42.0-52.0); HEMOGLOBIN 9.9 g/dl (13.5-17.5); MEAN CORPUSCULAR HEMOGLOBIN 31.5 pg (27.0-33.0); MEAN CORPUSCULAR VOLUME 98.4 fl (80.0-96.0); PLATELET COUNT, AUTOMATED 120 10^3/uL (150-450); RED BLOOD COUNT 3.14 10^6/uL (4.30-6.10); WHITE BLOOD COUNT 4.7 10^3/uL (4.0-10.0)
[2019-03-26 07:57] LABS: ALBUMIN 3.4 GM/DL (3.2-5.2); ALT/SGPT 20 U/L (12-78); BILIRUBIN,TOTAL 0.3 MG/DL (0.2-1.0); BLOOD UREA NITROGEN 31 MG/DL (7-18); CALCIUM LEVEL 8.3 MG/DL (8.8-10.2); CARBON DIOXIDE LEVEL 27 MEQ/L (21-32); CHLORIDE LEVEL 110 MEQ/L (98-107); CHOLESTEROL LEVEL 107 MG/DL (<200); CHOLESTEROL RISK RATIO 2.609 (<5); CREATININE FOR GFR 1.15 MG/DL (0.70-1.30); GLOMERULAR FILTRATION RATE > 60.0 (>35); GLUCOSE, FASTING 91 MG/DL (70-100); HDL CHOLESTEROL 41 MG/DL (>40); LDL CHOLESTEROL 47 MG/DL (<100); NON-HDL-C 66 MG/DL; POTASSIUM SERUM 4.2 MEQ/L (3.5-5.1); SODIUM LEVEL 144 MEQ/L (136-145); TOTAL PROTEIN 5.9 GM/DL (6.4-8.2); TRIGLYCERIDES LEVEL 94 MG/DL (<150)
== END ==
LOC: SKLAB6 07:00
PROVIDERS: ATTEND Family Medicine
DX: Z79.899 Other long term (current) drug therapy (principal)

== ENCOUNTER → 2019-04-09 | Outpatient (REF) | payer MEDICARE ==
--- NOTE | 2019-04-09 12:27 | REP ---
LEFT HAND: THREE VIEWS. HISTORY: Injury in a recent fall. Recent fracture. COMPARISON STUDY: January 18, 2019. This showed a transversely-oriented fracture through the proximal end of the 1st metacarpal. FINDINGS: Today's radiographs demonstrate a slightly impacted, transversely-oriented healing fracture of the proximal end of the 1st metacarpal with periosteal callus formation. 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 No additional fracture is seen. Osteoarthritic changes are seen at the IP joint of the thumb and at the PIP and DIP joints of all four fingers. IMPRESSION: Slightly impacted fracture of the proximal end of the 1st metacarpal with periosteal callus formation and hypertrophy. 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 Electronically Signed by Clayton Beasley MD 04/09/2019 02:33 P
--- NOTE | 2019-04-09 13:14 | REP ---
Left wrist four views: There is a fracture at the base of the thumb metacarpal. 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 There is demineralization. The carpal joint spaces are otherwise unremarkable. There is a questionable nondisplaced fracture of the articular cortex of the distal radius. Electronically Signed by Colton Birmingham MD 04/09/2019 01:06 P
== END ==
LOC: SKLAB6 10:30
PROVIDERS: ATTEND Family Medicine
DX: S62.25 Fracture of neck of first metacarpal bone (principal)

== ENCOUNTER 2019-06-14 19:56 | Emergency (ER) | payer MEDICARE, MEDICAID ==
[2019-06-14] MEDS ORDERED: INFANRIX VACCINE SYRINGE (DIPHTH/TET/ACEL PERTUS PEDIATRIC) (CPT 90700) IM ONE (20:30)
--- NOTE | 2019-06-14 20:59 | REPVR ---
PROCEDURE INFORMATION: Exam: CT Cervical Spine Without Contrast Exam date and time: 06/14/2019 8:41 PM Age: 88 years old Clinical indication: Injury or trauma; Fall; Initial encounter; Blunt trauma; Additional info: Fall unwitnessed TECHNIQUE: Imaging protocol: Computed tomography images of the cervical spine without contrast. Radiation optimization: All CT scans at this facility use at least one of these dose optimization techniques: automated exposure control; mA and/or kV adjustment per patient size (includes targeted exams where dose is matched to clinical indication); or iterative reconstruction. COMPARISON: CT Spine,cervical w/o contrast 06/01/2017 6:47 PM FINDINGS: Vertebrae: Mild dextroconvex curvature. Non-specific straightening of the cervical lordosis. Trace anterolisthesis of C4 on C5 and C7 on T1. Vertebral body heights are preserved. Moderate to severe degenerative change about the dens. Mild to moderate prevertebral osteophytosis. There are bilateral facet joint degenerative changes. Discs/Spinal canal/Neural foramina: Central canal stenosis greatest at C5-C6, likely moderate. Multilevel cervical foraminal stenosis. Soft tissues: Unremarkable. Lungs: Lung apices are normal. Pleural space: No visible pneumothorax. IMPRESSION: No acute cervical spine fracture. Electronically signed by: Joe Borden On 06/14/2019 20:59:29 PM
--- NOTE | 2019-06-14 21:01 | REPVR ---
PROCEDURE INFORMATION: Exam: CT Head Without Contrast Exam date and time: 06/14/2019 8:41 PM Age: 88 years old Clinical indication: Injury or trauma; Fall; Initial encounter; Blunt trauma (contusions or hematomas); Additional info: Fall unwitnessed TECHNIQUE: Imaging protocol: Computed tomography of the head without contrast. Radiation optimization: All CT scans at this facility use at least one of these dose optimization techniques: automated exposure control; mA and/or kV adjustment per patient size (includes targeted exams where dose is matched to clinical indication); or iterative reconstruction. COMPARISON: CT Head without contrast 06/01/2017 6:47 PM FINDINGS: Brain: Decreased attenuation of the supratentorial white matter is likely secondary to chronic microvascular ischemia. No acute intracranial hemorrhage. Ventricles: Ventricular and subarachnoid spaces are age appropriate. Bones/joints: Unremarkable. No acute fracture. Sinuses: Visualized sinuses are unremarkable. No fluid levels. Mastoid air cells: Visualized mastoid air cells are well aerated. Soft tissues: Unremarkable. Vasculature: Intracranial vascular calcification. IMPRESSION: No acute intracranial abnormality. Electronically signed by: Joe Borden On 06/14/2019 21:00:50 PM
[2019-06-14] MEDS: DERMABOND TOPICAL SKIN ADHESIVE TOP ONE ×2 (21:06→21:11)
[2019-06-14 21:40] VITALS: BP 158/67
--- NOTE | 2019-06-15 08:08 | ECGEPIP ---
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
== END 2019-06-14 21:50 | disposition home or self-care (01) ==
LOC: M ED 19:56
DX: S01.91XA Laceration without foreign body of unspecified part of head, initial encounter (principal); W19.XXXA Unspecified fall, initial encounter; Y92.129 Unspecified place in nursing home as the place of occurrence of the external cause; F03.90 Unspecified dementia, unspecified severity, without behavioral disturbance, psychotic disturbance, mood disturbance, and anxiety; Z91.81 History of falling; Z23 Encounter for immunization

== ENCOUNTER → 2019-06-25 | Outpatient (REF) | payer MEDICARE, MEDICAID ==
[2019-06-25 09:10] LABS: HEMATOCRIT 26.2 % (42.0-52.0); HEMOGLOBIN 8.4 g/dl (13.5-17.5); MEAN CORPUSCULAR HEMOGLOBIN 32.1 pg (27.0-33.0); MEAN CORPUSCULAR HGB CONC 32.1 g/dl (32.0-36.5); PLATELET COUNT, AUTOMATED 164 10^3/uL (150-450); RED BLOOD COUNT 2.62 10^6/uL (4.30-6.10); WHITE BLOOD COUNT 6.9 10^3/uL (4.0-10.0)
[2019-06-25 09:38] LABS: ALBUMIN 2.9 GM/DL (3.2-5.2); ALT/SGPT 19 U/L (12-78); BILIRUBIN,TOTAL 0.5 MG/DL (0.2-1.0); BLOOD UREA NITROGEN 24 MG/DL (7-18); CALCIUM LEVEL 7.6 MG/DL (8.8-10.2); CARBON DIOXIDE LEVEL 28 MEQ/L (21-32); CHLORIDE LEVEL 109 MEQ/L (98-107); GLOMERULAR FILTRATION RATE > 60.0 (>35); GLUCOSE, FASTING 85 MG/DL (70-100); POTASSIUM SERUM 4.3 MEQ/L (3.5-5.1); SODIUM LEVEL 143 MEQ/L (136-145); TOTAL PROTEIN 5.4 GM/DL (6.4-8.2)
== END ==
LOC: SKLAB6 07:00
PROVIDERS: ATTEND Family Medicine
DX: F03.90 Unspecified dementia, unspecified severity, without behavioral disturbance, psychotic disturbance, mood disturbance, and anxiety (principal); D64.9 Anemia, unspecified; E78.5 Hyperlipidemia, unspecified

== ENCOUNTER → 2019-07-19 | Outpatient (REF) | payer MEDICARE, MEDICAID | LOC: SKLAB6 10:55 | PROVIDERS: ATTEND Family Medicine | DX: S51.801A Unspecified open wound of right forearm, initial encounter (principal); Y99.8 Other external cause status; Y92.89 Other specified places as the place of occurrence of the external cause; Y93.89 Activity, other specified; X58.XXXA Exposure to other specified factors, initial encounter ==

== ENCOUNTER → 2019-07-21 | Outpatient (REF) | payer MEDICARE, MEDICAID ==
[2019-07-21 10:12] LABS: CALCIUM LEVEL 8.3 MG/DL (8.8-10.2); CREATININE FOR GFR 1.28 MG/DL (0.70-1.30); GLOMERULAR FILTRATION RATE 56.7 (>35); POTASSIUM SERUM 4.2 MEQ/L (3.5-5.1)
== END ==
LOC: EEVIPCON → SKLAB6 07:00
PROVIDERS: ATTEND Family Medicine
DX: Z79.899 Other long term (current) drug therapy (principal)

== ENCOUNTER → 2019-09-24 | Outpatient (REF) | payer MEDICARE, MEDICAID ==
[~2019-09-24] MED LIST changes: +AMLO1TAB24 PO; -AMLO5TAB6 PO
[2019-12-05 10:53] LABS: HEMATOCRIT 35.7 % (42.0-52.0); MEAN CORPUSCULAR HEMOGLOBIN 30.9 pg (27.0-33.0); MEAN CORPUSCULAR HGB CONC 30.8 g/dl (32.0-36.5); MEAN CORPUSCULAR VOLUME 100.3 fl (80.0-96.0); PLATELET COUNT, AUTOMATED 120 10^3/uL (150-450); RED BLOOD COUNT 3.56 10^6/uL (4.30-6.10); WHITE BLOOD COUNT 11.7 10^3/uL (4.0-10.0)
[2019-12-19 12:09] LABS: ALBUMIN 2.9 GM/DL (3.2-5.2); BILIRUBIN,TOTAL 0.5 MG/DL (0.2-1.0); CALCIUM LEVEL 8.5 MG/DL (8.8-10.2); CREATININE FOR GFR 1.23 MG/DL (0.70-1.30); GLOMERULAR FILTRATION RATE 59.3 (>35); POTASSIUM SERUM 3.9 MEQ/L (3.5-5.1); TOTAL PROTEIN 5.6 GM/DL (6.4-8.2)
== END ==
LOC: SKLAB6 09:10
DX: I10 Essential (primary) hypertension (principal)